=== PATIENT | male | born 1990 | race African-American/Black ===

== ENCOUNTER 2017-03-29 18:49 | Emergency (ER) | payer SELFPAY ==
[~2017-03-29] VITALS: Ht 185.4 cm; Wt 74.0 kg
[2017-03-29 18:50] VITALS: BP 119/67; PULSE 72; RESP 16; TEMP 97.8; O2SAT 98
--- NOTE | 2017-03-29 18:57 | PD ---
Physical Exam Time Seen by Provider: 18:56 Narrative 26yo M c/o penile discharge and dysuria for a few days. Herbert fever, vomiting. +unprotected sexual intercourse. Unknown exposure to STD. Patient seen in triage. VS reviewed. Awaiting bed placement. Data Data Last Documented VS Vital Signs Date Time Temp Pulse Resp B/P Pulse Ox O2 Delivery O2 Flow Rate FiO2 03/29/17 18:50 97.8 72 16 119/67 98 Room Air MDM Supervised Visit with FREDDIE: No Scripts No Active Prescriptions or Reported Meds Vinita Gregory Mar 29, 2017 18:57
--- NOTE | 2017-03-29 20:09 | PD ---
HPI Chief Complaint: Complaint Time Seen by Provider: 20:05 Travel History International Travel<30 days: No Contact w/Intl Traveler<30days: No Traveled to known affect area: No History of Present Illness HPI 26-year-old black male presents with a three-day history of urethral discharge and burning with urination. He has had increased urinary frequency and urgency. He denies any fever chills. No abdominal pain. No rashes or lesions. Symptoms are mild. History Past Medical Histgory Narrative Medical History of STD in the past Tetanus Vaccination: < 5 Years Hx Cancer: No Past Surgical History Surgical History: No Previous Surgery Social History Alcohol Use: No Tobacco Use: Yes (08/17 PPD) Allergies-Medications (Allergen,Severity, Reaction): Coded Allergies: No Known Allergies (Verified , 12/02/13) Reported Meds & Prescriptions Reported Meds & Active Scripts Active No Active Prescriptions or Reported Medications Review of Systems Except as stated in HPI: all other systems reviewed are Neg Physical Exam Narrative GENERAL: This is a well-nourished, well-developed patient, in no apparent distress. SKIN: No rashes, ecchymoses or lesions. Warm and dry. HEAD: Atraumatic. Normocephalic. EYES: PERRL, EOMI, no discharge or injection. No scleral icterus. EARS: Clear NOSE: Nasal turbinates appear normal. THROAT: Mucosa pink and moist. Airway patent. NECK: Trachea midline. supple, moves head freely. LUNGS: Clear to auscultation. CV: Regular in rhythm. ABDOMEN: Soft nontender. EXT: No clubbing cyanosis or edema. GENITOURINARY: Circumcised. Testes descended bilaterally without evidence of rotation. No lesions or erythema. Positive beige urethral discharge. Data Data Last Documented VS Vital Signs Date Time Temp Pulse Resp B/P Pulse Ox O2 Delivery O2 Flow Rate FiO2 03/29/17 18:50 97.8 72 16 119/67 98 Room Air MDM Medical Screen Exam Complete: Yes Emergency Medical Condition: No Differential Diagnosis MDM: Moderate Differential diagnoses: Chlamydia, gonorrhea, syphilis, chancroid, hepatitis, HIV, herpes Narrative Course A medical screening exam was performed: At the time of evaluation the presenting medical condition was determined not to be of an emergent nature. The patient was given the option of receiving additional care, but declined. Patient was given options for additional community resources from which to obtain care. The Patient Has Been advised to seek medical attention for their presenting complaint. The patient has been advised to return to the ER at any time if an emergent condition develops. Primary Impression: Encounter for medical screening examination Scripts No Active Prescriptions or Reported Meds Condition: Johny Law Mar 29, 2017 20:09
== END 2017-03-29 20:24 | disposition left against medical advice (07) ==
LOC: NEPK 18:49
DX: R36.9 Urethral discharge, unspecified (principal); R30.0 Dysuria; R35.0 Frequency of micturition; R39.15 Urgency of urination; F17.200 Nicotine dependence, unspecified, uncomplicated
CPT/HCPCS: 99281

== ENCOUNTER 2017-09-26 18:47 | Inpatient (IN) | payer SELFPAY ==
[~2017-09-26 18:47] MED LIST: CALC250 PO; ENOX30P SQ; FOLI1TAB6 PO; HALO5P IV PUSH; HYDR-3516 PO; Lactulose Liq PO; MAGN30S PO; MORP4INJ3 IV PUSH; PANT40TA3 PO; PERI PO; THERTAB15 PO; THIA100 PO; ZIPR20P IM
[2017-09-26] MEDS ORDERED: ACETAMINOPHEN 325 MG TAB PO PRN (20:45)
[2017-09-26] MEDS ORDERED: MAGNESIUM HYDROXIDE SUSP 30 ML CUP PO PRN (20:45)
[2017-09-26] MEDS ORDERED: ALUMINUM/MAGNESIUM/SIMETH 30 ML CUP PO PRN (20:45)
[2017-09-26] MEDS ORDERED: ACETAMINOPHEN/HYDROcodone 325 MG/5 MG TAB PO PRN (20:45)
[2017-09-26] MEDS: DOCUSATE SODIUM 50 MG/SENNA 8.6 MG TAB PO SCH (21:09)
[2017-09-26] MEDS: ENOXAPARIN SODIUM 30 MG/0.3 ML SYRINGE SQ SCH (21:09)
[2017-09-26] MEDS: MORPHINE SULFATE 4 MG/ML INJ IV PUSH PRN (21:10)
[2017-09-26] MEDS: ACETAMINOPHEN/HYDROcodone 325 MG/5 MG TAB PO PRN (21:12)
[2017-09-27] MEDS: ACETAMINOPHEN/HYDROcodone 325 MG/5 MG TAB PO PRN ×2 (03:29→10:12)
[2017-09-27] MEDS: MORPHINE SULFATE 4 MG/ML INJ IV PUSH PRN ×4 (03:30→20:11)
[2017-09-27 05:36] VITALS: BP 123/62; PULSE 80; RESP 16; TEMP 98.8; O2SAT 98
[2017-09-27] MEDS: PANTOPRAZOLE SOD 40 MG DELAYED RELEASE TAB PO SCH (09:00)
[2017-09-27] MEDS: MULTIVITAMIN TAB PO SCH (09:00)
[2017-09-27] MEDS: CALCIUM/VITAMIN D 250 MG/125 U TAB PO SCH ×3 (09:00→18:00)
[2017-09-27] MEDS: FOLIC ACID 1 MG TAB PO SCH (09:00)
[2017-09-27] MEDS: DOCUSATE SODIUM 50 MG/SENNA 8.6 MG TAB PO SCH ×2 (09:00→21:03)
[2017-09-27] MEDS: THIAMINE HCL 100 MG TAB PO SCH (09:00)
[2017-09-27] MEDS ORDERED: INFLUENZA VIRUS VACCINE (QUADRIVALENT) 0.5 ML SYR IM ONE (10:00)
[2017-09-27] MEDS ORDERED: PNEUMOCOCCAL POLYVALENT INJ 25 MCG/0.5 ML SYR IM ONE (10:00)
[2017-09-27] MEDS: ENOXAPARIN SODIUM 30 MG/0.3 ML SYRINGE SQ SCH ×2 (10:12→21:02)
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
--- NOTE | 2017-09-27 10:50 | EKG ---
Date Performed: 09/27/2017 Time Performed: 07:16:48 PTAGE: 26 years EKG: Sinus rhythm POSSIBLE RIGHT VENTRICULAR CONDUCTION DELAY MINIMAL VOLTAGE CRITERIA FOR LVH, CONSIDER NORMAL VARIAN T ST ELEVATION, PROBABLY EARLY REPOLARIZATION TYPE 2 BRUGADA PATTERN (NON-DIAGNOSTIC) BORDERLINE ECG NO PREVIOUS TRACING DOCTOR: Ravindra Urban Interpretating Date/Time 09/27/2017 10:49:11
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
[2017-09-27] MEDS ORDERED: oxyCODONE/ACETAMINOPHEN 5 MG/325 MG TAB PO PRN (12:00)
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
[2017-09-27 15:09] LABS: BICARBONATE 31.4 MEQ/L (21.0-32.0); BLOOD UREA NITROGEN 10 MG/DL (7-18); CALCIUM 7.8 MG/DL (8.5-10.1); CHLORIDE 103 MEQ/L (98-107); CHOLESTEROL 128 MG/DL (120-200); CREATININE 0.65 MG/DL (0.60-1.30); GLOMERULAR FILTRATION RATE 180 ML/MIN (>89); GLUCOSE,RANDOM 95 MG/DL (74-106); SODIUM (NA) 138 MEQ/L (136-145); TRIGLYCERIDES 130 MG/DL (42-150)
[2017-09-27 15:19] LABS: CHOLESTEROL/ HDL RATIO 4.47 RATIO; HDL CHOLESTEROL 28.6 MG/DL (40.0-60.0); LDL CHOLESTEROL 73 MG/DL (0-99)
[2017-09-27] MEDS: oxyCODONE/ACETAMINOPHEN 10 MG/325 MG TAB PO PRN ×2 (15:53→21:03)
[2017-09-27 16:41] LABS: HEMOGLOBIN A1C 4.9 % (4.3-6.0)
[2017-09-27] MEDS ORDERED: QUEtiapine FUMARATE 25 MG TAB PO SCH (21:00)
[2017-09-28] MEDS: oxyCODONE/ACETAMINOPHEN 10 MG/325 MG TAB PO PRN ×4 (04:12→20:24)
[2017-09-28] MEDS: MORPHINE SULFATE 4 MG/ML INJ IV PUSH PRN ×4 (05:58→21:16)
[2017-09-28 06:00] VITALS: BP 130/67; PULSE 89; RESP 16; TEMP 98.7; O2SAT 97
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
--- NOTE | 2017-09-28 10:02 | PD.ORT.PN ---
Subjective Subjective Remarks POD 5 s/p I&D with wound closure and IMN left femur doing well. reports pain but controlled. Objective Vitals Vital Signs Date Time Temp Pulse Resp B/P (MAP) Pulse Ox O2 Delivery O2 Flow Rate FiO2 09/28/17 06:00 98.7 89 16 130/67 (88) 97 I/O 09/27/17 09/27/17 09/27/17 09/28/17 09/28/17 09/28/17 07:00 15:00 23:00 07:00 15:00 23:00 Intake Total 240 ml 720 ml 360 ml Output Total 850 ml 1200 ml Balance -610 ml 720 ml -840 ml Intake Oral 240 ml 720 ml 360 ml Output Urine Total 850 ml 1200 ml # Voids 2 3 Result Diagram: 09/27/17 1408 Objective Remarks Left lower extremity: Clean dry dressings and intact. wound vac intact. good seal. distally NVI. vac removed and wounds visualized. healing well. minimal drainage. intact Assessment & Plan Assessment and Plan 1) Open left femur fracture S/P IMN and I&D with wound closure POD 5 vac discontinued today transition to normal soft dressings changes daily with xeroform/4x4/TED PT TTWB L LE continue dressing changes over left 1st toe with xeroform and dressing Poncho Monsalve/First Matthew LEMOS Sep 28, 2017 10:02
--- NOTE | 2017-09-28 10:17 | HHI.PR ---
Subjective Remarks Wound VAC has been removed. Patient is in pain when seen but says that after changing from narcotic Percocet he has better pain control. No other complaints from the patient. Objective Vital Signs Date Time Temp Pulse Resp B/P (MAP) Pulse Ox O2 Delivery O2 Flow Rate FiO2 09/28/17 06:00 98.7 89 16 130/67 (88) 97 I/O 09/27/17 09/27/17 09/27/17 09/28/17 09/28/17 09/28/17 07:00 15:00 23:00 07:00 15:00 23:00 Intake Total 240 ml 720 ml 360 ml Output Total 850 ml 1200 ml Balance -610 ml 720 ml -840 ml Intake Oral 240 ml 720 ml 360 ml Output Urine Total 850 ml 1200 ml # Voids 2 3 Result Diagram: 09/27/17 1408 Objective Remarks GENERAL: NAD, A&Ox3 HEAD: Normocephalic. NECK: Supple, trachea midline. No lymphadenopathy. EYES: No scleral icterus. No injection or drainage. CARDIOVASCULAR: Regular rate and rhythm without murmurs, gallops, or rubs. RESPIRATORY: Breath sounds equal bilaterally. No accessory muscle use. GASTROINTESTINAL: Abdomen soft, non-tender, nondistended. MUSCULOSKELETAL: No cyanosis, or edema. SKIN: Warm and dry. Sutures at medial thigh wound, rashi left knee and left lateral upper thigh. NEURO: No focal neurological deficitis. A/P Problem List: (1) Leg fracture, left ICD Code: S82.92XA - Unspecified fracture of left lower leg, initial encounter for closed fracture (2) Adjustment disorder with depressed mood ICD Code: F43.21 - Adjustment disorder with depressed mood Assessment and Plan 26-year-old male admitted secondary to left leg fracture and adjustment disorder with depressed mood Adjustment disorder with depressed mood Treatments per psychiatry Left leg fracture Postop left leg fracture repair Orthopedics following Wound VAC removed 09/28/17 Continue pain treatments Continue Percocet as needed for pain with morphine sulfate for breakthrough pain Follow H&H Continue working with physical therapy DVT prophylaxis Continue Stephen Warner MD Sep 28, 2017 10:17
[2017-09-28 10:35] LABS: HEMOGLOBIN 9.9 GM/DL (13.0-17.0)
[2017-09-28] MEDS: PANTOPRAZOLE SOD 40 MG DELAYED RELEASE TAB PO SCH (11:22)
[2017-09-28] MEDS: CALCIUM/VITAMIN D 250 MG/125 U TAB PO SCH ×3 (11:22→17:35)
[2017-09-28] MEDS: FOLIC ACID 1 MG TAB PO SCH (11:23)
[2017-09-28] MEDS: MULTIVITAMIN TAB PO SCH (11:23)
[2017-09-28] MEDS: DOCUSATE SODIUM 50 MG/SENNA 8.6 MG TAB PO SCH ×2 (11:23→20:24)
[2017-09-28] MEDS: THIAMINE HCL 100 MG TAB PO SCH (11:23)
[2017-09-28] MEDS: ENOXAPARIN SODIUM 30 MG/0.3 ML SYRINGE SQ SCH ×2 (11:32→20:24)
[2017-09-28 18:09] VITALS: BP 133/66; PULSE 77; RESP 16; TEMP 97.9; O2SAT 96
[2017-09-28] MEDS ORDERED: QUEtiapine FUMARATE 100 MG TAB PO SCH (21:00)
[2017-09-29] MEDS: MORPHINE SULFATE 4 MG/ML INJ IV PUSH PRN ×4 (04:12→18:55)
[2017-09-29 06:04] VITALS: BP 136/75; PULSE 92; RESP 17; TEMP 98; O2SAT 97
[2017-09-29] MEDS: PANTOPRAZOLE SOD 40 MG DELAYED RELEASE TAB PO SCH (08:30)
[2017-09-29] MEDS: DOCUSATE SODIUM 50 MG/SENNA 8.6 MG TAB PO SCH ×2 (08:30→21:00)
[2017-09-29] MEDS: ENOXAPARIN SODIUM 30 MG/0.3 ML SYRINGE SQ SCH ×2 (08:30→21:01)
[2017-09-29] MEDS: CALCIUM/VITAMIN D 250 MG/125 U TAB PO SCH ×3 (08:30→16:34)
[2017-09-29] MEDS: MULTIVITAMIN TAB PO SCH (08:30)
[2017-09-29] MEDS: THIAMINE HCL 100 MG TAB PO SCH (08:30)
[2017-09-29] MEDS: oxyCODONE/ACETAMINOPHEN 10 MG/325 MG TAB PO PRN ×4 (08:30→21:01)
[2017-09-29] MEDS: FOLIC ACID 1 MG TAB PO SCH (08:30)
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
--- NOTE | 2017-09-29 13:58 | HHI.PYPN ---
Subjective Remarks Patient seen for follow-up, chart reviewed. Discussion nursing staff reported the patient refused physical therapy yesterday had bowel movement. Patient was found lying hospital and that to be guarded and irritable today. Patient states that he is feeling "tired" and pain. Patient denies any perceptual source of delusions, continues to report feeling depressed but denies any suicide ideation at this time. Discussion about continued pain while her physical therapy was reviewed which he acknowledged but endorsed wanting to continue to improve. Patient denies any adverse drug reactions from quetiapine reports tolerating well. Review of Systems Except as stated in HPI: all other systems reviewed are Neg Mental Status Examination Appearance: Disheveled Consciousness: Somnolent (Somewhat but able to interact with interview today) Orientation: Person, Place, Date/Time Speech: Unremarkable Language: Adequate Fund of Knowledge: Inadequate Memory: Unremarkable Mood: Irritable Affect: Sad, Other (Guarded) Thought Process & Associations: Intact, Goal directed, Linear Thought Content: Appropriate Hallucination Type: None Delusion Type: None Suicidal Ideation: Yes (Denies today) Suicidal Plan: No Suicidal Intention: No Homicidal Ideation: No Homicidal Plan: No Homicidal Intention: No Insight: Fair Judgment: Impulsive Results Vitals/IOs Vital Signs Date Time Temp Pulse Resp B/P (MAP) Pulse Ox O2 Delivery O2 Flow Rate FiO2 09/29/17 06:04 98.0 92 17 136/75 (95) 97 Intake and Output 09/29/17 09/29/17 09/30/17 08:00 16:00 00:00 Intake Total 480 ml 480 ml Balance 480 ml 480 ml Assessment & Plan Problem List: (1) Adjustment disorder with depressed mood ICD Codes: F43.21 - Adjustment disorder with depressed mood Assessment & Plan Patient this time continues to be noted to be somewhat dysphoric, endorsing depressed mood, denying suicidality today and continues with irritability. We will continue to titrate quetiapine to therapeutic dose. Continue to monitor mood and behavior. Patient to continue physical therapy as well as recommend patient has required medical team. Discharge planning in progress. Justification for Cont. Inpt. At risk of further decompensation of lower level of care Discharge Planning Return back to mother's residence once psychiatrically medically stable. Xu Sharma MD Sep 29, 2017 13:58
[2017-09-29 18:32] VITALS: BP 121/62; PULSE 97; RESP 18; TEMP 98; O2SAT 94
[2017-09-29 18:46] LABS: HEMATOCRIT 32.6 % (39.0-51.0)
[2017-09-29] MEDS: hydrOXYzine HCL 50 MG TAB PO PRN (21:00)
[2017-09-29] MEDS ORDERED: QUEtiapine FUMARATE 100 MG TAB PO SCH (21:00)
[2017-09-29] MEDS: diphenhydrAMINE HCL 50 MG CAP PO PRN (21:01)
[2017-09-30] MEDS: oxyCODONE/ACETAMINOPHEN 10 MG/325 MG TAB PO PRN ×4 (03:58→17:34)
[2017-09-30] MEDS: MORPHINE SULFATE 4 MG/ML INJ IV PUSH PRN ×3 (04:15→20:40)
[2017-09-30 06:45] VITALS: BP 120/69; PULSE 100; RESP 18; TEMP 97.9; O2SAT 95
[2017-09-30] MEDS: FOLIC ACID 1 MG TAB PO SCH (09:43)
[2017-09-30] MEDS: CALCIUM/VITAMIN D 250 MG/125 U TAB PO SCH ×3 (09:43→17:34)
[2017-09-30] MEDS: THIAMINE HCL 100 MG TAB PO SCH (09:43)
[2017-09-30] MEDS: MULTIVITAMIN TAB PO SCH (09:43)
[2017-09-30] MEDS: DOCUSATE SODIUM 50 MG/SENNA 8.6 MG TAB PO SCH ×2 (09:43→20:39)
[2017-09-30] MEDS: PANTOPRAZOLE SOD 40 MG DELAYED RELEASE TAB PO SCH (09:43)
[2017-09-30] MEDS: ENOXAPARIN SODIUM 30 MG/0.3 ML SYRINGE SQ SCH ×2 (09:59→20:40)
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
--- NOTE | 2017-09-30 17:34 | HHI.PYPN ---
Subjective Remarks Patient seen for follow-up, chart reviewed. Discussion with the staff reported the patient could be blunted, depressed, denies any suicidal ideation cooperative. Patient was found lying in bed asleep a little weight continuing with interview. Patient's. Patient is alert and would not been continuing to be depressed denying any suicide ideations. Patient denies any adverse progression of. Reports continuing having pain and willing to work with physical therapy to regain his function. Denies any perceptual disturbance or delusions at this time. Review of Systems Except as stated in HPI: all other systems reviewed are Neg Mental Status Examination Appearance: Disheveled Consciousness: Alert Orientation: Person, Place, Date/Time Speech: Unremarkable Language: Adequate Fund of Knowledge: Inadequate Memory: Unremarkable Mood: Sad Affect: Sad, Other (Guarded) Thought Process & Associations: Intact, Goal directed, Linear Thought Content: Appropriate Hallucination Type: None Delusion Type: None Suicidal Ideation: Yes (Denies today) Suicidal Plan: No Suicidal Intention: No Homicidal Ideation: No Homicidal Plan: No Homicidal Intention: No Insight: Fair Judgment: Impulsive Results Labs Test 09/29/17 18:13 Hemoglobin 11.0 GM/DL Hematocrit 32.6 % Potassium Level 4.2 MEQ/L Vitals/IOs Vital Signs Date Time Temp Pulse Resp B/P (MAP) Pulse Ox O2 Delivery O2 Flow Rate FiO2 09/30/17 06:45 97.9 100 18 120/69 (86) 95 Intake and Output 09/30/17 09/30/17 10/01/17 08:00 16:00 00:00 Intake Total 960 ml Output Total 700 ml Balance -700 ml 960 ml Assessment & Plan Problem List: (1) Adjustment disorder with depressed mood ICD Codes: F43.21 - Adjustment disorder with depressed mood Assessment & Plan Patient this time continues to report feeling depressed denies any suicidal ideation. He was tolerating medications well. We will continue to titrate quetiapine to 300 mg p.o. at bedtime for mood stabilization. Continue to monitor mood and behavior. Continue recommendations as per medical team. Discharge planning in progress. Justification for Cont. Inpt. At risk for further decompensation if at lower level of care. Discharge Planning Back to his mother's residence Xu Sharma MD Sep 30, 2017 17:34
[2017-09-30 18:00] VITALS: BP 131/79; PULSE 89; RESP 18; TEMP 97.8; O2SAT 98
[2017-09-30] MEDS: diphenhydrAMINE HCL 50 MG CAP PO PRN (20:39)
[2017-09-30] MEDS: QUEtiapine FUMARATE 100 MG TAB PO SCH (20:39)
[2017-10-01] MEDS: MORPHINE SULFATE 4 MG/ML INJ IV PUSH PRN ×4 (01:01→19:34)
[2017-10-01 06:17] VITALS: BP 128/74; PULSE 93; RESP 17; TEMP 98.5
[2017-10-01 08:23] LABS: AUTOMATED NEUTROPHIL # 7.4 TH/MM3 (1.8-7.7); BASOPHIL # 0.1 TH/MM3 (0-0.2); BASOPHIL % 0.5 % (0.0-2.0); EOSINOPHIL # 0.5 TH/MM3 (0-0.4); EOSINOPHIL % 4.7 % (0.0-4.0); HEMATOCRIT 29.4 % (39.0-51.0); HEMOGLOBIN 10.2 GM/DL (13.0-17.0); LYMPH % 17.3 % (9.0-44.0); LYMPHOCYTE # 1.9 TH/MM3 (1.0-4.8); MEAN CELL VOLUME 91.8 FL (80.0-100.0); MEAN CORPUSCULAR HEMOGLOBIN 31.7 PG (27.0-34.0); MEAN CORPUSCULAR HGB CONC 34.5 % (32.0-36.0); MEAN PLATELET VOLUME 7.6 FL (7.0-11.0); MONO % 8.9 % (0.0-8.0); NEUT % 68.6 % (16.0-70.0); PLATELET COUNT 392 TH/MM3 (150-450); RED CELL DISTRIBUTION WIDTH 15.8 % (11.6-17.2); WHITE BLOOD COUNT 10.7 TH/MM3 (4.0-11.0)
[2017-10-01 08:46] LABS: ALBUMIN 2.9 GM/DL (3.4-5.0); AST (GOT) 67 U/L (15-37); BICARBONATE 28.9 MEQ/L (21.0-32.0); BLOOD UREA NITROGEN 20 MG/DL (7-18); CALCIUM 8.5 MG/DL (8.5-10.1); CHLORIDE 97 MEQ/L (98-107); CREATININE 0.83 MG/DL (0.60-1.30); GLOMERULAR FILTRATION RATE 136 ML/MIN (>89); GLUCOSE,RANDOM 99 MG/DL (74-106); MAGNESIUM 2.2 MG/DL (1.5-2.5); SODIUM (NA) 133 MEQ/L (136-145)
[2017-10-01 08:49] LABS: ALKALINE PHOSPHATASE 72 U/L (45-117); ALT (GPT) 73 U/L (12-78); PHOSPHORUS 4.2 MG/DL (2.5-4.9); TOTAL BILIRUBIN ADULT 0.6 MG/DL (0.2-1.0); TOTAL PROTEIN 7.4 GM/DL (6.4-8.2)
[2017-10-01] MEDS: PANTOPRAZOLE SOD 40 MG DELAYED RELEASE TAB PO SCH (09:37)
[2017-10-01] MEDS: THIAMINE HCL 100 MG TAB PO SCH (09:37)
[2017-10-01] MEDS: DOCUSATE SODIUM 50 MG/SENNA 8.6 MG TAB PO SCH ×2 (09:37→21:10)
[2017-10-01] MEDS: MULTIVITAMIN TAB PO SCH (09:37)
[2017-10-01] MEDS: FOLIC ACID 1 MG TAB PO SCH (09:37)
[2017-10-01] MEDS: CALCIUM/VITAMIN D 250 MG/125 U TAB PO SCH ×3 (09:37→18:00)
[2017-10-01] MEDS: oxyCODONE/ACETAMINOPHEN 10 MG/325 MG TAB PO PRN ×3 (09:39→21:11)
[2017-10-01] MEDS: ENOXAPARIN SODIUM 30 MG/0.3 ML SYRINGE SQ SCH ×2 (09:40→21:11)
--- NOTE | 2017-10-01 10:47 | HHI.PYPN ---
Subjective Remarks The patient was seen today for psychiatric reevaluation. Chart Was reviewed. The case was discussed with nurse in charge and also with medical student Dr. Joya. On psychiatric evaluation the patient is calm, cooperative, pleasant. He is eating his breakfast, reports good mood, good appetite, good sleep at night. She was able to elaborate about plans for the future, to continue with his life, get away from drugs. At this moment he denies suicidal and homicidal ideation, he denies visual and auditory hallucinations. The patient is logical , coherent and relevant. There is no paranoia, no loosening of associations, no pressured speech, no internal preoccupation present. He is oriented 3. Compliant with his medications, no significant side effects. Review of Systems Except as stated in HPI: all other systems reviewed are Neg Mental Status Examination Appearance: Disheveled Consciousness: Alert Orientation: x4 Speech: Unremarkable Language: Adequate Fund of Knowledge: Inadequate Memory: Unremarkable Mood: Appropriate Affect: Appropriate, Other (Guarded) Thought Process & Associations: Intact, Goal directed, Linear Thought Content: Appropriate Hallucination Type: None Delusion Type: None Suicidal Ideation: No Suicidal Plan: No Suicidal Intention: No Homicidal Ideation: No Homicidal Plan: No Homicidal Intention: No Insight: Fair Judgment: Impulsive Results Labs Test 10/01/17 07:16 White Blood Count 10.7 TH/MM3 Red Blood Count 3.20 MIL/MM3 Hemoglobin 10.2 GM/DL Hematocrit 29.4 % Mean Corpuscular Volume 91.8 FL Mean Corpuscular Hemoglobin 31.7 PG Mean Corpuscular Hemoglobin Concent 34.5 % Red Cell Distribution Width 15.8 % Platelet Count 392 TH/MM3 Mean Platelet Volume 7.6 FL Neutrophils (%) (Auto) 68.6 % Lymphocytes (%) (Auto) 17.3 % Monocytes (%) (Auto) 8.9 % Eosinophils (%) (Auto) 4.7 % Basophils (%) (Auto) 0.5 % Neutrophils # (Auto) 7.4 TH/MM3 Lymphocytes # (Auto) 1.9 TH/MM3 Monocytes # (Auto) 1.0 TH/MM3 Eosinophils # (Auto) 0.5 TH/MM3 Basophils # (Auto) 0.1 TH/MM3 CBC Comment DIFF FINAL Differential Comment Blood Urea Nitrogen 20 MG/DL Creatinine 0.83 MG/DL Random Glucose 99 MG/DL Total Protein 7.4 GM/DL Albumin 2.9 GM/DL Calcium Level 8.5 MG/DL Phosphorus Level 4.2 MG/DL Magnesium Level 2.2 MG/DL Alkaline Phosphatase 72 U/L Aspartate Amino Transf (AST/SGOT) 67 U/L Alanine Aminotransferase (ALT/SGPT) 73 U/L Total Bilirubin 0.6 MG/DL Sodium Level 133 MEQ/L Potassium Level 4.3 MEQ/L Chloride Level 97 MEQ/L Carbon Dioxide Level 28.9 MEQ/L Anion Gap 7 MEQ/L Estimat Glomerular Filtration Rate 136 ML/MIN Vitals/IOs Vital Signs Date Time Temp Pulse Resp B/P (MAP) Pulse Ox O2 Delivery O2 Flow Rate FiO2 10/01/17 06:17 98.5 93 17 128/74 (92) 09/30/17 18:00 98 Intake and Output 10/01/17 10/01/17 10/02/17 08:00 16:00 00:00 Intake Total 0 ml 480 ml Balance 0 ml 480 ml Assessment & Plan Problem List: (1) Adjustment disorder with depressed mood ICD Codes: F43.21 - Adjustment disorder with depressed mood Assessment & Plan: Continue current psychotropic regimen. Brief supportive psychotherapy provided. Assessment & Plan Estimated LOS: days Justification for Cont. Inpt. Continue psychiatric hospitalization for safety and stabilization. Alejandro Dotson MD Oct 01, 2017 10:47
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
[2017-10-01 18:26] VITALS: BP 117/70; PULSE 106; RESP 18; TEMP 98.1; O2SAT 98
[2017-10-01] MEDS: QUEtiapine FUMARATE 100 MG TAB PO SCH (21:10)
[2017-10-01] MEDS: diphenhydrAMINE HCL 50 MG CAP PO PRN (21:10)
[2017-10-02] MEDS: MORPHINE SULFATE 4 MG/ML INJ IV PUSH PRN ×4 (05:25→20:15)
[2017-10-02 06:27] VITALS: BP 118/61; PULSE 89; RESP 17; TEMP 98.3; O2SAT 98
[2017-10-02] MEDS: CALCIUM/VITAMIN D 250 MG/125 U TAB PO SCH ×3 (09:02→18:00)
[2017-10-02] MEDS: oxyCODONE/ACETAMINOPHEN 10 MG/325 MG TAB PO PRN ×3 (09:02→21:37)
[2017-10-02] MEDS: MULTIVITAMIN TAB PO SCH (09:02)
[2017-10-02] MEDS: PANTOPRAZOLE SOD 40 MG DELAYED RELEASE TAB PO SCH (09:02)
[2017-10-02] MEDS: DOCUSATE SODIUM 50 MG/SENNA 8.6 MG TAB PO SCH ×2 (09:02→20:15)
[2017-10-02] MEDS: FOLIC ACID 1 MG TAB PO SCH (09:02)
[2017-10-02] MEDS: THIAMINE HCL 100 MG TAB PO SCH (09:03)
[2017-10-02] MEDS: ENOXAPARIN SODIUM 30 MG/0.3 ML SYRINGE SQ SCH ×2 (09:03→20:16)
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
[2017-10-02] MEDS: hydrOXYzine HCL 50 MG TAB PO PRN ×2 (15:53→21:37)
[2017-10-02 18:23] VITALS: BP 125/69; PULSE 84; RESP 17; TEMP 98; O2SAT 98
[2017-10-02] MEDS: QUEtiapine FUMARATE 100 MG TAB PO SCH (20:15)
[2017-10-03] MEDS: hydrOXYzine HCL 50 MG TAB PO PRN ×2 (06:22→17:51)
[2017-10-03] MEDS: oxyCODONE/ACETAMINOPHEN 10 MG/325 MG TAB PO PRN ×4 (06:22→22:07)
[2017-10-03 06:26] VITALS: BP 130/64; PULSE 88; RESP 18; TEMP 98; O2SAT 98
--- NOTE | 2017-10-03 08:48 | HHI.PYPN ---
Subjective Remarks Patient seen in his room with nurse Deann, chart reviewed, patient discussed with nurse. Patient overall calm cooperative and pleasant with me complaining of pain still with his fractured leg but is doing somewhat better. He denies suicidality of voices at the present time is compliant with medication Review of Systems Except as stated in HPI: all other systems reviewed are Neg Mental Status Examination Appearance: Disheveled Consciousness: Alert Orientation: x4 Speech: Unremarkable Language: Adequate Fund of Knowledge: Inadequate Memory: Unremarkable Mood: Appropriate Affect: Appropriate, Other (Guarded) Thought Process & Associations: Intact, Goal directed, Linear Thought Content: Appropriate Hallucination Type: None Delusion Type: None Suicidal Ideation: No Suicidal Plan: No Suicidal Intention: No Homicidal Ideation: No Homicidal Plan: No Homicidal Intention: No Insight: Fair Judgment: Impulsive Results Vitals/IOs Vital Signs Date Time Temp Pulse Resp B/P (MAP) Pulse Ox O2 Delivery O2 Flow Rate FiO2 10/03/17 06:26 98.0 88 18 130/64 (86) 98 Intake and Output 10/03/17 10/03/17 10/04/17 08:00 16:00 00:00 Intake Total 120 ml Output Total 750 ml Balance -630 ml Assessment & Plan Problem List: (1) Adjustment disorder with depressed mood ICD Codes: F43.21 - Adjustment disorder with depressed mood Assessment & Plan Estimated LOS: days patient calmer cooperative more pleasant today appears somewhat depressed. Is been no behavior problems, compliant with medication Justification for Cont. Inpt. At this time patient decompensate of placed in a lower level of care Discharge Planning To be determined probable return home with family Jorje De Leon MD Oct 03, 2017 08:48
[2017-10-03] MEDS: FOLIC ACID 1 MG TAB PO SCH (09:12)
[2017-10-03] MEDS: MULTIVITAMIN TAB PO SCH (09:12)
[2017-10-03] MEDS: THIAMINE HCL 100 MG TAB PO SCH (09:12)
[2017-10-03] MEDS: PANTOPRAZOLE SOD 40 MG DELAYED RELEASE TAB PO SCH (09:12)
[2017-10-03] MEDS: CALCIUM/VITAMIN D 250 MG/125 U TAB PO SCH ×3 (09:12→17:51)
[2017-10-03] MEDS: DOCUSATE SODIUM 50 MG/SENNA 8.6 MG TAB PO SCH ×2 (09:12→21:56)
[2017-10-03] MEDS: MORPHINE SULFATE 4 MG/ML INJ IV PUSH PRN ×3 (09:12→20:00)
[2017-10-03] MEDS: ENOXAPARIN SODIUM 30 MG/0.3 ML SYRINGE SQ SCH ×2 (09:12→21:56)
--- NOTE | 2017-10-03 10:09 | HHI.PR ---
Subjective Remarks Patient seen and examined this morning. Afebrile vital signs stable. Reports he is doing well. He is about to start some physical therapy. He is enjoying his physical therapy. He is worried that he might have put too much weight on his leg. Encouraged him to still get out of bed and move around as much as possible. Objective Vitals Vital Signs Date Time Temp Pulse Resp B/P (MAP) Pulse Ox O2 Delivery O2 Flow Rate FiO2 10/03/17 06:26 98.0 88 18 130/64 (86) 98 10/02/17 20:20 18 10/02/17 18:23 98.0 84 17 125/69 (87) 98 I/O 10/02/17 10/02/17 10/02/17 10/03/17 10/03/17 10/03/17 07:00 15:00 23:00 07:00 15:00 23:00 Intake Total 360 ml 2040 ml 120 ml 360 ml Output Total 1600 ml 750 ml Balance 360 ml 440 ml -630 ml 360 ml Intake Oral 360 ml 2040 ml 120 ml 360 ml Output Urine Total 1600 ml 750 ml Result Diagram: 10/01/1716 10/01/1716 Objective Remarks GENERAL: Awake and alert somewhat talkative well-developed well-nourished -Swiss male in no acute distress awake alert and oriented 2-3 SKIN: Warm and dry. HEAD: Atraumatic. Normocephalic. EYES: Pupils equal and round. No scleral icterus. No injection or drainage. Extractor muscles intact ENT: No nasal bleeding or discharge. Mucous membranes pink and moist. Tongue is midline NECK: Trachea midline. No JVD. Supple CARDIOVASCULAR: Regular rate and rhythm. S1 and S2 no S3 or S4 RESPIRATORY: No accessory muscle use. Clear to auscultation. Breath sounds equal bilaterally. GASTROINTESTINAL: Abdomen soft, non-tender, nondistended. Hepatic and splenic margins not palpable. MUSCULOSKELETAL: Extremities without clubbing, cyanosis, or edema. No obvious deformities. LEFT LEG TRACE EDEMA NOTED-postop left leg fracture repair with left thigh wrapped in an Mateus wrap. Left knee rashi dry and intact no visible drainage left upper thigh rashi no visible drainage dry and intact NEUROLOGICAL: Awake and alert. No obvious cranial nerve deficits. Motor grossly within normal limits. 4 out of 5 muscle strength in the arms and legs. Normal speech. PSYCHIATRIC: INAppropriate mood and affect; insight and judgment ABnormal. Medications and IVs Current Medications Medications (Trade) Dose Ordered Sig/Keya Route Start Time Stop Time Status Last Admin (Benadryl) 50 mg HS PRN PO 09/26/17 20:45 10/01/17 21:10 (Tylenol) 650 mg Q4H PRN PO 09/26/17 20:45 10/01/17 09:38 (Milk Of Magnesia Liq) 30 ml DAILY PRN PO 09/26/17 20:45 09/27/17 21:03 (Mag-Al Plus Susp Liq) 30 ml Q6H PRN PO 09/26/17 20:45 (Atarax) 50 mg Q6H PRN PO 09/26/17 20:45 10/03/17 06:22 (Oscal-D 250-125) 250 mg TID PO 09/27/17 09:00 10/03/17 09:12 (Lovenox Inj) 30 mg Q12H SQ 09/26/17 21:00 10/03/17 09:12 (Folate) 1 mg DAILY PO 09/27/17 09:00 10/03/17 09:12 (Morphine Inj) 4 mg Q3H PRN IV PUSH 09/26/17 20:45 10/03/17 09:12 (Theragran) 1 tab DAILY PO 09/27/17 09:00 10/03/17 09:12 (Protonix) 40 mg DAILY PO 09/27/17 09:00 10/03/17 09:12 (Elidia-Colace) 1 tab BID PO 09/26/17 21:00 10/03/17 09:12 (Vitamin B1) 100 mg DAILY PO 09/27/17 09:00 10/03/17 09:12 (Percocet 10-325 Mg) 1 tab Q4H PRN PO 09/27/17 12:00 10/03/17 09:53 (Percocet 5-325 Mg) 1 tab Q4H PRN PO 09/27/17 12:00 (SEROquel) 300 mg HS PO 09/30/17 21:00 10/02/17 20:15 A/P Problem List: (1) Leg fracture, left ICD Code: S82.92XA - Unspecified fracture of left lower leg, initial encounter for closed fracture (2) Adjustment disorder with depressed mood ICD Code: F43.21 - Adjustment disorder with depressed mood Assessment and Plan 26-year-old male admitted secondary to left leg fracture and adjustment disorder with depressed mood Adjustment disorder with depressed mood - Treatments per psychiatry Left leg fracture - Postop left leg fracture repair -Orthopedic service is following, appreciate ongoing recommendations. Wound VAC off with orders for dressing changes by orthopedics - Continue pain medication, briefly discussed with patient the importance of participating in physical therapy for recovery. -H&H stable Hypokalemia, mild -stable at this time DVT prophylaxis - Continue Lovenox Discussed with nurse. Recheck labs Consulted PT and OT, recommendations appreciate Discharge Planning Pending psychiatry clearance Bryson Aquino MD, R3 Oct 03, 2017 10:09
[2017-10-03 19:01] VITALS: BP 124/58; PULSE 102; RESP 18; TEMP 98.2; O2SAT 99
[2017-10-03] MEDS: QUEtiapine FUMARATE 100 MG TAB PO SCH (21:56)
[2017-10-04 05:07] VITALS: BP 107/62; PULSE 89; RESP 16; TEMP 98.1; O2SAT 99
[2017-10-04 07:47] LABS: HEMATOCRIT 28.5 % (39.0-51.0); HEMOGLOBIN 9.7 GM/DL (13.0-17.0); MEAN CELL VOLUME 92.8 FL (80.0-100.0); MEAN CORPUSCULAR HEMOGLOBIN 31.7 PG (27.0-34.0); MEAN CORPUSCULAR HGB CONC 34.1 % (32.0-36.0); MEAN PLATELET VOLUME 6.8 FL (7.0-11.0); PLATELET COUNT 481 TH/MM3 (150-450); RED BLOOD COUNT 3.07 MIL/MM3 (4.50-5.90); WHITE BLOOD COUNT 8.3 TH/MM3 (4.0-11.0)
[2017-10-04] MEDS: CALCIUM/VITAMIN D 250 MG/125 U TAB PO SCH ×3 (07:57→17:30)
[2017-10-04] MEDS: DOCUSATE SODIUM 50 MG/SENNA 8.6 MG TAB PO SCH ×2 (07:58→21:52)
[2017-10-04] MEDS: THIAMINE HCL 100 MG TAB PO SCH (07:58)
[2017-10-04] MEDS: PANTOPRAZOLE SOD 40 MG DELAYED RELEASE TAB PO SCH (07:58)
[2017-10-04] MEDS: ENOXAPARIN SODIUM 30 MG/0.3 ML SYRINGE SQ SCH ×2 (07:59→21:00)
[2017-10-04] MEDS: MULTIVITAMIN TAB PO SCH (07:59)
[2017-10-04] MEDS: FOLIC ACID 1 MG TAB PO SCH (07:59)
[2017-10-04] MEDS: oxyCODONE/ACETAMINOPHEN 10 MG/325 MG TAB PO PRN ×4 (08:00→21:54)
[2017-10-04 08:13] LABS: BICARBONATE 30.2 MEQ/L (21.0-32.0); CALCIUM 8.4 MG/DL (8.5-10.1); CREATININE 0.8 MG/DL (0.60-1.30)
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
[2017-10-04] MEDS: MORPHINE SULFATE 4 MG/ML INJ IV PUSH PRN ×3 (11:45→20:44)
--- NOTE | 2017-10-04 12:14 | HHI.PYPN ---
Subjective Remarks Patient seen for follow-up, chart reviewed. Discussion nursing staff or the patient continues to work with physical therapy but no behavioral disturbances. Patient was found lying in hospital bed initially irritable and guarded but able to interact with the interview today. Patient states that he has been feeling "okay" tolerating medications well and continue to be motivated to continue recovery from his recent fractures. Patient reports feeling "okay" denying any depressive symptoms at this time denying any suicidal or homicidal ideations, perceptual disturbances or delusions. Patient states he is motivated to continue with his treatment and recovery. Review of Systems Except as stated in HPI: all other systems reviewed are Neg Mental Status Examination Appearance: Appropriate Consciousness: Alert Orientation: x4 Speech: Unremarkable Language: Adequate Fund of Knowledge: Inadequate Attention and Concentration: Adequate Memory: Unremarkable Mood: Appropriate Affect: Appropriate, Other (Guarded) Thought Process & Associations: Intact, Goal directed, Linear Thought Content: Appropriate Hallucination Type: None Delusion Type: None Suicidal Ideation: No Suicidal Plan: No Suicidal Intention: No Homicidal Ideation: No Homicidal Plan: No Homicidal Intention: No Insight: Fair Judgment: Impulsive Results Labs Labs reviewed Test 10/04/17 07:35 White Blood Count 8.3 TH/MM3 Red Blood Count 3.07 MIL/MM3 Hemoglobin 9.7 GM/DL Hematocrit 28.5 % Mean Corpuscular Volume 92.8 FL Mean Corpuscular Hemoglobin 31.7 PG Mean Corpuscular Hemoglobin Concent 34.1 % Red Cell Distribution Width 16.0 % Platelet Count 481 TH/MM3 Mean Platelet Volume 6.8 FL Blood Urea Nitrogen 19 MG/DL Creatinine 0.80 MG/DL Random Glucose 91 MG/DL Calcium Level 8.4 MG/DL Sodium Level 135 MEQ/L Potassium Level 4.3 MEQ/L Chloride Level 100 MEQ/L Carbon Dioxide Level 30.2 MEQ/L Anion Gap 5 MEQ/L Estimat Glomerular Filtration Rate 142 ML/MIN Vitals/IOs Vital Signs Date Time Temp Pulse Resp B/P (MAP) Pulse Ox O2 Delivery O2 Flow Rate FiO2 10/04/17 05:07 98.1 89 16 107/62 (77) 99 Intake and Output 10/04/17 10/04/17 10/05/17 08:00 16:00 00:00 Intake Total 240 ml 420 ml Balance 240 ml 420 ml Assessment & Plan Problem List: (1) Adjustment disorder with depressed mood ICD Codes: F43.21 - Adjustment disorder with depressed mood Assessment & Plan Patient this time appears to be tolerating medications well, continues to be somewhat guarded but denying any depressive symptoms or suicidal./ homicidal ideations. We will await for final recommendations from physical therapy as patient likely for psychiatric discharge tomorrow. We will arrange to have patient have outpatient follow-up upon discharge as well as possibility of implementing home health services for continued recovery. Patient will also be referred to outpatient rehabilitation program as well. Continue recognitions as her prior medical team. Discharge planning in progress. Justification for Cont. Inpt. At risk for further decompensation if at lower level of care Discharge Planning Back to his mother's residence. Xu Sharma MD Oct 04, 2017 12:14
[2017-10-04 18:37] VITALS: BP 127/62; PULSE 104; RESP 16; TEMP 97.7; O2SAT 99
[2017-10-04] MEDS: diphenhydrAMINE HCL 50 MG CAP PO PRN (21:53)
[2017-10-04] MEDS: QUEtiapine FUMARATE 100 MG TAB PO SCH (21:53)
[2017-10-05 05:43] VITALS: BP 113/65; PULSE 88; RESP 21; TEMP 98.1
[2017-10-05] MEDS: MORPHINE SULFATE 4 MG/ML INJ IV PUSH PRN ×2 (06:36→10:11)
[2017-10-05] MEDS ORDERED: PERI PO (06:47)
[2017-10-05] MEDS ORDERED: PANT40TA3 PO (06:47)
[2017-10-05] MEDS ORDERED: CALC250 PO (06:47)
[2017-10-05] MEDS ORDERED: FOLI1TAB6 PO (06:47)
[2017-10-05] MEDS ORDERED: THIA100 PO (06:47)
[2017-10-05] MEDS ORDERED: QUET1TAB10 PO (06:47)
[2017-10-05] MEDS ORDERED: THERTAB15 PO (06:47)
[2017-10-05] MEDS: CALCIUM/VITAMIN D 250 MG/125 U TAB PO SCH ×2 (08:34→13:00)
[2017-10-05] MEDS: FOLIC ACID 1 MG TAB PO SCH (08:34)
[2017-10-05] MEDS: DOCUSATE SODIUM 50 MG/SENNA 8.6 MG TAB PO SCH (08:34)
[2017-10-05] MEDS: MULTIVITAMIN TAB PO SCH (08:34)
[2017-10-05] MEDS: PANTOPRAZOLE SOD 40 MG DELAYED RELEASE TAB PO SCH (08:34)
[2017-10-05] MEDS: oxyCODONE/ACETAMINOPHEN 10 MG/325 MG TAB PO PRN ×2 (08:34→12:49)
[2017-10-05] MEDS: THIAMINE HCL 100 MG TAB PO SCH (08:34)
[2017-10-05] MEDS: ENOXAPARIN SODIUM 30 MG/0.3 ML SYRINGE SQ SCH (08:36)
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
--- NOTE | 2017-10-05 11:27 | HHI.PR ---
Subjective Remarks no complaints Objective Vitals Vital Signs Date Time Temp Pulse Resp B/P (MAP) Pulse Ox O2 Delivery O2 Flow Rate FiO2 10/05/17 11:11 18 10/05/17 05:43 98.1 88 21 113/65 (81) 10/04/17 18:37 97.7 104 16 127/62 (83) 99 I/O 10/04/17 10/04/17 10/04/17 10/05/17 10/05/17 10/05/17 07:00 15:00 23:00 07:00 15:00 23:00 Intake Total 1080 ml 1320 ml 360 ml 840 ml 240 ml Output Total 400 ml Balance 1080 ml 1320 ml 360 ml 440 ml 240 ml Intake Oral 1080 ml 1320 ml 360 ml 840 ml 240 ml Output Urine Total 400 ml # Voids 5 2 # Bowel Movements 1 2 Result Diagram: 10/04/17 0735 10/04/17 0735 A/P Problem List: (1) Leg fracture, left ICD Code: S82.92XA - Unspecified fracture of left lower leg, initial encounter for closed fracture (2) Adjustment disorder with depressed mood ICD Code: F43.21 - Adjustment disorder with depressed mood Assessment and Plan call ortho regarding dc plans weight bearing status follow up appointment lovenox duration pain meds- will be written for one week then pcp follow up with [facility] outpatient follow up appointment Dario Light MD Oct 05, 2017 11:27
[2017-10-05] MEDS ORDERED: WALKER/ADULT/FO1 MIS (11:45)
[2017-10-05] MEDS ORDERED: WHEEMIS3 (11:45)
[2017-10-05] MEDS ORDERED: XARE10TA PO (11:46)
[2017-10-05] MEDS ORDERED: OXYC1TAB36 PO (11:52)
[2017-10-05 17:43] VITALS: BP 111/57; PULSE 95; RESP 18; TEMP 97.8; O2SAT 97
== END 2017-10-05 18:10 | disposition home or self-care (01) | DRG 881 ==
LOC: MERGE 20:05 → H4EA 20:05
PROVIDERS: ADMIT Student in an Organized Health Care Education/Training Program; ATTEND Student in an Organized Health Care Education/Training Program
DX: F43.21 Adjustment disorder with depressed mood (principal); S72.92XB Unspecified fracture of left femur, initial encounter for open fracture type I or II; R45.851 Suicidal ideations; F11.20 Opioid dependence, uncomplicated; F13.20 Sedative, hypnotic or anxiolytic dependence, uncomplicated; F14.20 Cocaine dependence, uncomplicated; F15.20 Other stimulant dependence, uncomplicated; E87.6 Hypokalemia; D64.9 Anemia, unspecified; F90.9 Attention-deficit hyperactivity disorder, unspecified type; F12.90 Cannabis use, unspecified, uncomplicated; V04.09XA Pedestrian with other conveyance injured in collision with heavy transport vehicle or bus in nontraffic accident, initial encounter; Z59.0 Homelessness; Z62.810 Personal history of physical and sexual abuse in childhood; Z72.0 Tobacco use; Z91.14 Patient's other noncompliance with medication regimen
CPT/HCPCS: 76937; 80048; 80053; 80061; 83036; 83735; 84100; 84132; 84443; 85014; 85018; 85025; 85027; 93005; J1650; J2270; Q0163

== ENCOUNTER 2017-10-15 18:47 | Emergency (ER) | payer SELFPAY ==
[~2017-10-15] VITALS: Ht 188 cm; Wt 76.0 kg
[~2017-10-15 18:47] MED LIST changes: -HALO5P IV PUSH; -Lactulose Liq PO; -MAGN30S PO; +OXYC1TAB36 PO; +QUET1TAB10 PO; +WALKER/ADULT/FO1 MIS; +WHEEMIS3; +XARE10TA PO; -ZIPR20P IM
[2017-10-15 19:05] VITALS: BP 119/64; PULSE 90; RESP 18; TEMP 98.4; O2SAT 100
== END 2017-10-15 21:05 | disposition left against medical advice (07) ==
LOC: NED 18:47
DX: Z53.21 Procedure and treatment not carried out due to patient leaving prior to being seen by health care provider (principal)
CPT/HCPCS: 99281

== ENCOUNTER 2017-11-22 17:06 | Observation (INO) | payer SELFPAY ==
[~2017-11-22] VITALS: Ht 188 cm; Wt 77.7 kg
[2017-11-22 17:21] VITALS: BP 148/75; PULSE 89; RESP 18; TEMP 97.7; O2SAT 100
--- NOTE | 2017-11-22 18:07 | RADRPT ---
EXAM DATE/TIME: 11/22/2017 17:52 [facility] COMPARISON: No previous studies available for comparison. INDICATIONS : Left femur pain and swelling post op 2 months. MEDICAL HISTORY : None. SURGICAL HISTORY : ORIF left femur 09/23/17. ENCOUNTER: Initial ACUITY: 2 days PAIN SCORE: 10/10 LOCATION: Left femur. FINDINGS: Two view examination of the left femur demonstrates postoperative kaley fixation across a comminuted fe moral shaft fracture with healing callous formation. Normal alignment of the femur. CONCLUSION: 1. Postoperative fixation of the left femur as above. No acute fracture. Johny Ellison MD on November 22, 2017 at 18:03 Board Certified Radiologist. This report was verified electronically.
[2017-11-22 20:54] VITALS: BP 133/72; PULSE 91; RESP 16; O2SAT 98
[2017-11-22] MEDS ORDERED: VANCOMYCIN INJ 1,000 MG in SODIUM CHLOR 0.9% 250 ML INJ 250 ML IV ONE (21:15)
[2017-11-22] MEDS ORDERED: KETOROLAC TROMETHAMINE 30 MG/ML (IVP) VIAL IV PUSH ONE (21:15)
[2017-11-22 21:56] LABS: AUTOMATED NEUTROPHIL # 4.4 TH/MM3 (1.8-7.7); BASOPHIL % 0.4 % (0.0-2.0); EOSINOPHIL # 0.2 TH/MM3 (0-0.4); EOSINOPHIL % 2.5 % (0.0-4.0); HEMOGLOBIN 12.1 GM/DL (13.0-17.0); LYMPH % 23.4 % (9.0-44.0); LYMPHOCYTE # 1.6 TH/MM3 (1.0-4.8); MEAN CELL VOLUME 85.5 FL (80.0-100.0); MEAN CORPUSCULAR HEMOGLOBIN 28.7 PG (27.0-34.0); MEAN CORPUSCULAR HGB CONC 33.5 % (32.0-36.0); MEAN PLATELET VOLUME 8.2 FL (7.0-11.0); MONO % 8.1 % (0.0-8.0); MONOCYTE # 0.5 TH/MM3 (0-0.9); NEUT % 65.6 % (16.0-70.0); PLATELET COUNT 374 TH/MM3 (150-450); RED BLOOD COUNT 4.21 MIL/MM3 (4.50-5.90); RED CELL DISTRIBUTION WIDTH 16.2 % (11.6-17.2); WHITE BLOOD COUNT 6.7 TH/MM3 (4.0-11.0)
[2017-11-22 22:00] VITALS: BP 121/69; PULSE 90; RESP 18; O2SAT 97
[2017-11-22 22:00] LABS: LACTIC ACID SEPSIS PROTOCOL 2.4 mmol/L (0.4-2.0)
[2017-11-22 22:03] LABS: PROTHROMBIN TIME - PATIENT 10.2 SEC (9.8-11.6)
[2017-11-22 22:09] LABS: ALBUMIN 3.1 GM/DL (3.4-5.0); ALT (GPT) 27 U/L (12-78); AST (GOT) 42 U/L (15-37); BICARBONATE 25.4 MEQ/L (21.0-32.0); BLOOD UREA NITROGEN 11 MG/DL (7-18); CALCIUM 8.3 MG/DL (8.5-10.1); CHLORIDE 102 MEQ/L (98-107); CREATININE 1.05 MG/DL (0.60-1.30); GLOMERULAR FILTRATION RATE 103 ML/MIN (>89); GLUCOSE,RANDOM 87 MG/DL (74-106); SODIUM (NA) 135 MEQ/L (136-145)
[2017-11-22 22:12] LABS: ALKALINE PHOSPHATASE 232 U/L (45-117); TOTAL BILIRUBIN ADULT 0.4 MG/DL (0.2-1.0); TOTAL PROTEIN 8.2 GM/DL (6.4-8.2)
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
--- NOTE | 2017-11-22 22:31 | RADRPT ---
EXAM DATE/TIME: 11/22/2017 22:13 [facility] COMPARISON: No previous studies available for comparison. INDICATIONS : Left leg swelling. MEDICAL HISTORY : PTSD. Vision problem. Substance use. Tobacco use. SURGICAL HISTORY : Left femur surgery. ENCOUNTER: Initial ACUITY: 4 - 6 days PAIN SCORE: 6/10 LOCATION: Left leg. TECHNIQUE: Venous ultrasound of the leg was performed from the inguinal ligament to the proximal calf. Real-jennifer e, color Doppler and spectral tracing, compression and augmentation techniques were used. FINDINGS: There is normal compressibility of the deep venous system from the inguinal region to the proximal ca lf. No echogenic clot is seen in the lumen of the common femoral, femoral, popliteal, and posterior tibial veins. There is a normal response of the venous system to proximal and distal augmentation an d respiration. CONCLUSION: Normal examination. Johny Ellison MD on November 22, 2017 at 22:28 Board Certified Radiologist. This report was verified electronically.
[2017-11-22] MEDS ORDERED: MORPHINE SULFATE 2 MG/ML SYRINGE IV PUSH ONE (23:00)
[2017-11-22] MEDS ORDERED: IOHEXOL 350 MG/ML 10 ML VIAL (for RAD DIAG) IVCONTRAST ONE (23:20)
[2017-11-22 23:21] VITALS: BP 127/58; PULSE 88; RESP 18; TEMP 98.6; O2SAT 98
--- NOTE | 2017-11-22 23:44 | RADRPT ---
EXAM DATE/TIME: 11/22/2017 22:56 [facility] COMPARISON: No previous studies available for comparison. INDICATIONS : Left femur pain; swelling. IV CONTRAST: 100 cc Omnipaque 350 (iohexol) IV RADIATION DOSE: 28.05 CTDIvol (mGy) MEDICAL HISTORY : None SURGICAL HISTORY : femur kaley 09/2017 ENCOUNTER: Initial ACUITY: 1 day PAIN SCALE: 8/10 LOCATION: Left femur TECHNIQUE: Volumetric scanning of the femur was performed. Using automated exposure control and adjustment of t he mA and/or kV according to patient size, radiation dose was kept as low as reasonably achievable to obtain optimal diagnostic quality images. DICOM format image data is available electronically for review and comparison. FINDINGS: There is an intramedullary kaley within the femur or fixating fracture in the midshaft. There are sever al adjacent bony fragments. There is some exuberant periosteal reaction. There is some soft tissue pr ominence in the region of the fracture and some areas of slight low-density measuring 2.3 x 1.6 cm an teriorly and smaller one measuring 11 m. These could be some small abscesses. CONCLUSION: 1. Internal fixation fixating slightly comminuted fracture mid shaft of the femur. There is some prom inent edema/ soft tissue swelling and 2 areas of low density measuring 2.3 and 1.1 cm. These could be related to small abscesses. Xu Brownlee MD on November 22, 2017 at 23:40 Board Certified Radiologist. This report was verified electronically.
[2017-11-23] VITALS (7 sets, daily range): BP systolic 110–129; BP diastolic 59–80; PULSE 61–76; RESP 16–20; TEMP 97.5–98.9; O2SAT 98–100
--- NOTE | 2017-11-23 01:11 | PD ---
Physical Exam Narrative I, Dr. Ren, have reviewed the advance practice practitioner's documentation and am in agreement, met with the patient face to face, made the diagnosis, and the medical decision making was done by me. *My assessment and Findings: Patient is a 27 year old male who comes in complaining of pain and swelling to his left leg where he had a femur fracture repaired. He says the swelling and pain have been getting worse over the past 4 days. Exam shows swelling around the surgical site, warm to the touch. No drainage from the surgical site. Data Data Last Documented VS Vital Signs Date Time Temp Pulse Resp B/P (MAP) Pulse Ox O2 Delivery O2 Flow Rate FiO2 11/22/17 23:21 98.6 88 18 127/58 (81) 98 Room Air Orders Orders Complete Blood Count With Diff (11/22/17 17:24) Comprehensive Metabolic Panel (11/22/17 17:24) Prothrombin Time / Inr (Pt) (11/22/17 17:24) Act Partial Throm Time (Ptt) (11/22/17 17:24) Femur (Ap & Lat/2vws) (11/22/17 ) Blood Culture (11/22/17 20:53) Iv Access Insert/Monitor (11/22/17 20:53) Ecg Monitoring (11/22/17 20:53) Oximetry (11/22/17 20:53) Ct Femur W Iv Contrast (11/22/17 ) Westergren Sedimentation Rate (11/22/17 20:53) Us Leg Venous Doppler (11/22/17 ) Lactic Acid Sepsis Protocol (11/22/17 21:08) Ketorolac Inj (Toradol Inj) (11/22/17 21:15) Vancomycin Inj (Vancomycin Inj) (11/22/17 21:15) C-Reactive Protein (Crp) (11/22/17 17:24) Morphine Inj (Morphine Inj) (11/22/17 23:00) Iohexol 350 Inj (Omnipaque 350 Inj) (11/22/17 23:20) Labs Laboratory Tests Test 11/22/17 20:35 11/22/17 20:55 11/23/17 00:04 Blood Urea Nitrogen 11 MG/DL Creatinine 1.05 MG/DL Random Glucose 87 MG/DL Total Protein 8.2 GM/DL Albumin 3.1 GM/DL Calcium Level 8.3 MG/DL Alkaline Phosphatase 232 U/L Aspartate Amino Transf (AST/SGOT) 42 U/L Alanine Aminotransferase (ALT/SGPT) 27 U/L Total Bilirubin 0.4 MG/DL Sodium Level 135 MEQ/L Potassium Level 3.9 MEQ/L Chloride Level 102 MEQ/L Carbon Dioxide Level 25.4 MEQ/L Anion Gap 8 MEQ/L Estimat Glomerular Filtration Rate 103 ML/MIN C-Reactive Protein 6.30 MG/DL White Blood Count 6.7 TH/MM3 Red Blood Count 4.21 MIL/MM3 Hemoglobin 12.1 GM/DL Hematocrit 36.0 % Mean Corpuscular Volume 85.5 FL Mean Corpuscular Hemoglobin 28.7 PG Mean Corpuscular Hemoglobin Concent 33.5 % Red Cell Distribution Width 16.2 % Platelet Count 374 TH/MM3 Mean Platelet Volume 8.2 FL Neutrophils (%) (Auto) 65.6 % Lymphocytes (%) (Auto) 23.4 % Monocytes (%) (Auto) 8.1 % Eosinophils (%) (Auto) 2.5 % Basophils (%) (Auto) 0.4 % Neutrophils # (Auto) 4.4 TH/MM3 Lymphocytes # (Auto) 1.6 TH/MM3 Monocytes # (Auto) 0.5 TH/MM3 Eosinophils # (Auto) 0.2 TH/MM3 Basophils # (Auto) 0.0 TH/MM3 CBC Comment DIFF FINAL Differential Comment Erythrocyte Sedimentation Rate 49 mm/hr Prothrombin Time 10.2 SEC Prothromb Time International Ratio 1.0 RATIO Activated Partial Thromboplast Time 29.3 SEC Lactic Acid Level 2.4 mmol/L 1.3 mmol/L [facility] Supervised Visit with FREDDIE: Yes Narrative Course Labs show elevated ESR and CRP. CT scan concerning for infection. Last 24 hours Impressions Lower Extremity Ultrasound 11/22/17 Signed Impressions: Service Date/Time: Wednesday, November 22, 2017 22:13 - CONCLUSION: Normal examination. Johny Ellison MD Lower Extremity CT 11/22/17 Signed Impressions: Service Date/Time: Wednesday, November 22, 2017 22:56 - CONCLUSION: 1. Internal fixation fixating slightly comminuted fracture mid shaft of the femur. There is some prominent edema/ soft tissue swelling and 2 areas of low density measuring 2.3 and 1.1 cm. These could be related to small abscesses. Xu Brownlee MD Femur X-Ray 11/22/17 0000 Signed Impressions: Service Date/Time: Wednesday, November 22, 2017 17:52 - CONCLUSION: 1. Postoperative fixation of the left femur as above. No acute fracture. Johny Ellison MD I spoke with the PA for Dr. Stuart who suggests observation and they will see the patient in the morning. Given Vancomycin and pain medicine. Diagnosis Primary Impression: Surgical site infection Qualified Codes: T81.4XXA - Infection following a procedure, initial encounter Admitting Information Admitting Physician Requests: Observation Marge Ren MD Nov 23, 2017 01:10
[2017-11-23] MEDS ORDERED: SENNOSIDES 8.6 MG TAB PO PRN (03:15)
[2017-11-23] MEDS ORDERED: PIPERACIL-TAZO 3.375 GM PREMIX 50 ML IV ONE (03:15)
[2017-11-23] MEDS ORDERED: Vancomycin Consult Pharmacy 1 EA OTHER SCH (03:15)
[2017-11-23] MEDS ORDERED: LACTULOSE SYRUP 20 GM/30 ML CUP PO PRN (03:15)
[2017-11-23] MEDS ORDERED: NALOXONE HCL 0.4 MG/ML AMP IV PUSH PRN (03:15)
[2017-11-23] MEDS ORDERED: ONDANSETRON HCL 4 MG/2 ML VIAL IVP PRN (03:15)
[2017-11-23] MEDS ORDERED: BISACODYL 10 MG SUPP RECTAL PRN (03:15)
[2017-11-23] MEDS ORDERED: ACETAMINOPHEN 325 MG TAB PO PRN (03:15)
[2017-11-23] MEDS ORDERED: MAGNESIUM HYDROXIDE SUSP 30 ML CUP PO PRN (03:15)
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
[2017-11-23] MEDS: SODIUM CHLOR 0.9% 1000 ML INJ 1,000 ML IV SCH ×2 (03:35→14:51)
[2017-11-23] MEDS: VANCOMYCIN INJ 1,700 MG in SODIUM CHLORID 0.9% 500 ML INJ 500 ML IV SCH ×2 (04:26→17:07)
[2017-11-23] MEDS: MORPHINE SULFATE 4 MG/ML INJ IV PUSH PRN ×3 (05:11→14:52)
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
[2017-11-23] MEDS ORDERED: VANCOMYCIN INJ 1,000 MG in SODIUM CHLOR 0.9% 250 ML INJ 250 ML IV SCH (09:15)
[2017-11-23] MEDS: DOCUSATE SODIUM 50 MG/SENNA 8.6 MG TAB PO SCH (09:35)
[2017-11-23] MEDS: SODIUM CHLORIDE 0.9% FLUSH 10 ML FLUSH IV FLUSH SCH (09:36)
[2017-11-23] MEDS: PIPERACIL-TAZO 3.375 GM PREMIX 50 ML IV SCH ×2 (09:36→14:51)
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
[2017-11-23] MEDS: ACETAMINOPHEN/HYDROcodone 325 MG/5 MG TAB PO PRN (17:08)
[2017-11-23] MEDS: KETOROLAC TROMETHAMINE 30 MG/ML (IVP) VIAL IV PUSH SCH (18:11)
[2017-11-23] MEDS: REMOVE OLD PATCH T-DERMAL SCH (18:45)
[2017-11-23] MEDS: QUEtiapine FUMARATE 300 MG TAB PO SCH (21:00)
[2017-11-24] VITALS (7 sets, daily range): BP systolic 105–139; BP diastolic 60–86; PULSE 59–104; RESP 16–18; TEMP 97.5–98.7; O2SAT 97–99
[2017-11-24] MEDS: PIPERACIL-TAZO 3.375 GM PREMIX 50 ML IV SCH ×4 (00:04→15:05)
[2017-11-24] MEDS: DOCUSATE SODIUM 50 MG/SENNA 8.6 MG TAB PO SCH ×3 (00:04→20:24)
[2017-11-24] MEDS: NICOTINE 14 MG/24 HR PATCH T-DERMAL SCH ×2 (00:04→08:37)
[2017-11-24] MEDS: KETOROLAC TROMETHAMINE 30 MG/ML (IVP) VIAL IV PUSH SCH ×5 (00:05→23:03)
[2017-11-24] MEDS: SODIUM CHLORIDE 0.9% FLUSH 10 ML FLUSH IV FLUSH SCH ×3 (00:05→23:02)
[2017-11-24] MEDS: SODIUM CHLOR 0.9% 1000 ML INJ 1,000 ML IV SCH ×3 (00:05→15:05)
[2017-11-24] MEDS: ACETAMINOPHEN/HYDROcodone 325 MG/5 MG TAB PO PRN ×3 (00:10→13:10)
[2017-11-24] MEDS ORDERED: PHARMACY ORDERED LAB ONE (03:45)
[2017-11-24] MEDS: VANCOMYCIN INJ 1,700 MG in SODIUM CHLORID 0.9% 500 ML INJ 500 ML IV SCH ×2 (04:57→16:41)
[2017-11-24] MEDS: REMOVE OLD PATCH T-DERMAL SCH (08:37)
[2017-11-24] MEDS ORDERED: HYDR-3516 PO (09:41)
[2017-11-24] MEDS ORDERED: IBUP1TAB5 PO (09:41)
--- NOTE | 2017-11-24 09:42 | HHI.DCPOC ---
Discharge Care Plan Diagnosis: (1) Surgical site infection (2) Leg fracture, left Your Health Problems Are: Difficulty with ADL Inflammation Swelling Goals to Promote Your Health * To prevent worsening of your condition and complications * To maintain your health at the optimal level Directions to Meet Your Goals Take your medications as prescribed Follow your dietary instruction Follow activity as directed Keep your appointments as scheduled Take your immunizations and boosters as scheduled If your symptoms worsen call your PCP, if no PCP go to Urgent Care Center or Emergency Room Smoking is Dangerous to Your Health. Avoid second hand smoke Call the 24-hour hour crisis hotline for domestic abuse at Mohini Lozano Nov 24, 2017 09:42
[2017-11-24 10:33] LABS: AUTOMATED NEUTROPHIL # 1.3 TH/MM3 (1.8-7.7); BASOPHIL % 0.7 % (0.0-2.0); EOSINOPHIL # 0.2 TH/MM3 (0-0.4); EOSINOPHIL % 6.2 % (0.0-4.0); HEMATOCRIT 36.5 % (39.0-51.0); HEMOGLOBIN 11.8 GM/DL (13.0-17.0); LYMPH % 40.3 % (9.0-44.0); LYMPHOCYTE # 1.2 TH/MM3 (1.0-4.8); MEAN CELL VOLUME 86.5 FL (80.0-100.0); MEAN CORPUSCULAR HEMOGLOBIN 28.1 PG (27.0-34.0); MEAN CORPUSCULAR HGB CONC 32.5 % (32.0-36.0); MONO % 9.3 % (0.0-8.0); MONOCYTE # 0.3 TH/MM3 (0-0.9); NEUT % 43.5 % (16.0-70.0); PLATELET COUNT 330 TH/MM3 (150-450); RED BLOOD COUNT 4.22 MIL/MM3 (4.50-5.90); RED CELL DISTRIBUTION WIDTH 16.2 % (11.6-17.2)
[2017-11-24 10:58] LABS: BICARBONATE 29.8 MEQ/L (21.0-32.0); C-REACTIVE PROTEIN 1.98 MG/DL (0.00-0.30); CREATININE 0.81 MG/DL (0.60-1.30)
[2017-11-24] MEDS: SODIUM CHLORIDE 0.9% FLUSH 10 ML FLUSH IV FLUSH PRN ×2 (12:17→18:59)
[2017-11-24] MEDS ORDERED: oxyCODONE/ACETAMINOPHEN 7.5 MG/325 MG TAB PO PRN (19:00)
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
[2017-11-24] MEDS: oxyCODONE/ACETAMINOPHEN 10 MG/325 MG TAB PO PRN (20:24)
[2017-11-24] MEDS: QUEtiapine FUMARATE 300 MG TAB PO SCH (20:25)
[2017-11-24] MEDS: BACLOFEN 10 MG TAB PO SCH (23:02)
[2017-11-25 04:04] VITALS: BP 130/69; PULSE 78; RESP 18; TEMP 97.6; O2SAT 100
[2017-11-25] MEDS: BACLOFEN 10 MG TAB PO SCH (05:41)
[2017-11-25] MEDS: KETOROLAC TROMETHAMINE 30 MG/ML (IVP) VIAL IV PUSH SCH ×2 (05:41→11:38)
[2017-11-25] MEDS: oxyCODONE/ACETAMINOPHEN 10 MG/325 MG TAB PO PRN ×2 (05:42→09:09)
[2017-11-25] MEDS ORDERED: OXYC1TAB36 PO (07:42)
[2017-11-25] MEDS ORDERED: BACL10TA PO (07:42)
[2017-11-25 07:48] LABS: HEMATOCRIT 32.7 % (39.0-51.0); HEMOGLOBIN 10.6 GM/DL (13.0-17.0); MEAN CELL VOLUME 86.3 FL (80.0-100.0); MEAN CORPUSCULAR HEMOGLOBIN 27.9 PG (27.0-34.0); MEAN CORPUSCULAR HGB CONC 32.3 % (32.0-36.0); MEAN PLATELET VOLUME 7.8 FL (7.0-11.0); PLATELET COUNT 341 TH/MM3 (150-450); RED BLOOD COUNT 3.79 MIL/MM3 (4.50-5.90); RED CELL DISTRIBUTION WIDTH 15.9 % (11.6-17.2); WHITE BLOOD COUNT 3.5 TH/MM3 (4.0-11.0)
[2017-11-25 08:00] VITALS: BP 130/83; PULSE 65; RESP 20; TEMP 96.3; O2SAT 100
[2017-11-25 08:10] LABS: CALCIUM 8.2 MG/DL (8.5-10.1); CREATININE 0.8 MG/DL (0.60-1.30)
[2017-11-25] MEDS: REMOVE OLD PATCH T-DERMAL SCH (09:00)
[2017-11-25] MEDS: DOCUSATE SODIUM 50 MG/SENNA 8.6 MG TAB PO SCH (09:00)
[2017-11-25] MEDS: NICOTINE 14 MG/24 HR PATCH T-DERMAL SCH (09:09)
[2017-11-25] MEDS: SODIUM CHLORIDE 0.9% FLUSH 10 ML FLUSH IV FLUSH SCH (09:09)
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
[2017-11-25 12:00] VITALS: BP 128/74; PULSE 82; RESP 19; TEMP 98; O2SAT 100
[2017-11-25] MEDS ORDERED: IBUP1TAB5 PO (12:00)
[2017-11-25 12:47] VITALS: RESP 20
== END 2017-11-25 14:58 | disposition home or self-care (01) ==
LOC: NEPE 17:06 → NEDA 11-23 01:28 → NEDH 11-23 05:51 → NEPHCDU 11-23 17:12
PROVIDERS: ADMIT Hospitalist; ATTEND Hospitalist
DX: T81.4XXA Infection following a procedure, initial encounter (principal); R70.0 Elevated erythrocyte sedimentation rate; F43.21 Adjustment disorder with depressed mood; F17.200 Nicotine dependence, unspecified, uncomplicated; F14.10 Cocaine abuse, uncomplicated; F19.10 Other psychoactive substance abuse, uncomplicated
CPT/HCPCS: 73552; 73701; 80048; 80053; 80202; 83605; 85025; 85027; 85610; 85652; 85730; 86140; 87040; 93971; 96361; 96365; 96366; 96368; 96375; 96376; 97161; 99285; E0113; G0378; G8987; G8988; J1885; J2270; J2405; J2543; J3370; J7030; J7040; J7050; Q9967

== ENCOUNTER 2017-12-09 09:53 | Inpatient (IN) | payer SELFPAY ==
[~2017-12-09] VITALS: Ht 185.4 cm; Wt 74.0 kg
[~2017-12-09 09:53] MED LIST changes: +BACL10TA PO; -ENOX30P SQ; -HYDR-3516 PO; +IBUP1TAB5 PO; -MORP4INJ3 IV PUSH; -PERI PO; -XARE10TA PO
[2017-12-09 10:06] VITALS: BP 138/75; PULSE 120; RESP 20; TEMP 97.9; O2SAT 100
[2017-12-09] MEDS ORDERED: KETOROLAC TROMETHAMINE 30 MG/ML (IVP) VIAL IV PUSH ONE (10:45)
--- NOTE | 2017-12-09 10:52 | PD ---
HPI Chief Complaint: Edema Time Seen by Provider: 10:32 Travel History International Travel<30 days: No Contact w/Intl Traveler<30days: No Traveled to known affect area: No History of Present Illness HPI 27-year-old male complains of pain and swelling left thigh. Patient has history of left femur fracture status post ORIF in September 2016. Patient was admitted to [facility] November 23 at discharge November 25 for increasing pain swelling of the left leg. CT scan of the left leg at that time showed possible abscess. Orthopedics consultation was obtained and was determined that is not an infection. Patient was discharged home with pain medication. Patient states that he did not fill the prescription for medication. Patient returned today complains increasing pain and swelling in the left leg. Patient denies any fever chills. Patient states the pain is severe pain sharp pain localized to left thigh area. Patient denies any pain radiation. On a scale of 1-10 the pain is a 10. Patient was seen in the emergency room at [facility] yesterday and ultrasound left leg negative for DVT. Patient has history of adjustment disorder status post recent suicide attempt. PFSH Past Medical History ADHD: Yes Cancer: No Cardiovascular Problems: No Diabetes: No Diminished Hearing: No Endocrine: No Genitourinary: No Headaches: No Hepatitis: No Hiatal Hernia: No Immune Disorder: No Musculoskeletal: Yes (LEFT FEMUR FRACTURE) Neurologic: No Psychiatric: No Reproductive: Yes Respiratory: No Immunizations Current: Yes Seizures: No Thyroid Disease: No Ulcer: No Past Surgical History AICD: No Appendectomy: No Body Medical Devices: SCREW/PINS/PLATES IN LEFT FEMUR Ear Surgery: No Joint Replacement: No Pacemaker: No Prostatectomy: No Social History Alcohol Use: No Tobacco Use: Yes (3 CIGS DAILY) Substance Use: No Allergies-Medications (Allergen,Severity, Reaction): Coded Allergies: No Known Allergies (Verified Allergy, Unknown, 11/23/17) Reported Meds & Prescriptions Reported Meds & Active Scripts Active Ibuprofen 400 Mg Tab 400 Mg PO Q8H PRN 3 Days Take with food Baclofen 10 Mg Tab 10 Mg PO Q8HR Oxycodone-Acetaminophen 10-325 (Oxycodone HCl/Acetaminophen) 10 Mg-325 Mg Tablet 1 Tab PO Q4H PRN Wheelchair (Device) 1 Mis Mis Ea .XX DIRECTED Walker/Adult/Folding (Device) 1 Mis Mis Ea .XX DIRECTED Quetiapine (Quetiapine Fumarate) 300 Mg Tab 300 Mg PO HS Thera Tablet (Multivitamin with Folic Acid) 400 Mcg Tablet 1 Tab PO DAILY 30 Days Gnp Vitamin B-1 (Thiamine HCl) 100 Mg Tab 100 Mg PO DAILY 30 Days Folic Acid 1 Mg Tablet 1 Mg PO DAILY 30 Days Pantoprazole (Pantoprazole Sodium) 40 Mg Tab 40 Mg PO DAILY 30 Days Oyster Shell 250 mg + Vit D Tb (Calcium/Vitamin D) 250 Mg Calcium (625 Mg)-125 Unit Tablet 250 Mg PO TID 30 Days Review of Systems General / Constitutional: No: Fever Eyes: No: Visual changes HENT: No: Headaches Cardiovascular: No: Chest Pain or Discomfort Respiratory: No: Shortness of Breath Gastrointestinal: No: Abdominal Pain Genitourinary: No: Dysuria Musculoskeletal: Positive: Edema, Pain Skin: No Rash Neurologic: No: Weakness Psychiatric: No: Depression Endocrine: No: Polydipsia Hematologic/Lymphatic: No: Easy Bruising Physical Exam Narrative GENERAL: Well-nourished, well-developed patient. SKIN: Focused skin assessment warm/dry. HEAD: Normocephalic. EYES: No scleral icterus. No injection or drainage. NECK: Supple, trachea midline. No JVD or lymphadenopathy. CARDIOVASCULAR: Regular rate and rhythm without murmurs, gallops, or rubs. RESPIRATORY: Breath sounds equal bilaterally. No accessory muscle use. GASTROINTESTINAL: Abdomen soft, non-tender, nondistended. MUSCULOSKELETAL: No cyanosis, or edema. BACK: Nontender without obvious deformity. No CVA tenderness. Patient has moderate tenderness localized to left thigh area. Soft tissue swelling noted. No induration noted. Sensory motor function distally intact. Data Data Last Documented VS Vital Signs Date Time Temp Pulse Resp B/P (MAP) Pulse Ox O2 Delivery O2 Flow Rate FiO2 12/09/17 13:33 101 18 129/80 (96) 99 Room Air 12/09/17 10:06 97.9 Orders Orders Complete Blood Count With Diff (12/09/17 10:38) Comprehensive Metabolic Panel (12/09/17 10:38) C-Reactive Protein (Crp) (12/09/17 10:38) [place] Sedimentation Rate (12/09/17 10:38) Iv Access Insert/Monitor (12/09/17 10:38) Ecg Monitoring (12/09/17 10:38) Oximetry (12/09/17 10:38) Ct Femur W Iv Contrast (12/09/17 ) Sodium Chlor 0.9% 1000 Ml Inj (Ns 1000 M (12/09/17 10:45) Ketorolac Inj (Toradol Inj) (12/09/17 10:45) Femur (Ap & Lat/2vws) (12/09/17 10:52) Blood Culture (12/09/17 10:56) Vancomycin Inj (Vancomycin Inj) (12/09/17 11:45) Iohexol 350 Inj (Omnipaque 350 Inj) (12/09/17 12:11) Sodium Chlor 0.9% 1000 Ml Inj (Ns 1000 M (12/09/17 14:30) Labs Laboratory Tests Test 12/09/17 10:55 White Blood Count 12.3 TH/MM3 Red Blood Count 4.57 MIL/MM3 Hemoglobin 12.5 GM/DL Hematocrit 38.2 % Mean Corpuscular Volume 83.6 FL Mean Corpuscular Hemoglobin 27.4 PG Mean Corpuscular Hemoglobin Concent 32.8 % Red Cell Distribution Width 17.9 % Platelet Count 416 TH/MM3 Mean Platelet Volume 7.6 FL Neutrophils (%) (Auto) 84.3 % Lymphocytes (%) (Auto) 7.0 % Monocytes (%) (Auto) 8.1 % Eosinophils (%) (Auto) 0.2 % Basophils (%) (Auto) 0.4 % Neutrophils # (Auto) 10.3 TH/MM3 Lymphocytes # (Auto) 0.9 TH/MM3 Monocytes # (Auto) 1.0 TH/MM3 Eosinophils # (Auto) 0.0 TH/MM3 Basophils # (Auto) 0.0 TH/MM3 CBC Comment DIFF FINAL Differential Comment Erythrocyte Sedimentation Rate 55 mm/hr Blood Urea Nitrogen 13 MG/DL Creatinine 0.94 MG/DL Random Glucose 79 MG/DL Total Protein 8.6 GM/DL Albumin 3.0 GM/DL Calcium Level 9.4 MG/DL Alkaline Phosphatase 292 U/L Aspartate Amino Transf (AST/SGOT) 26 U/L Alanine Aminotransferase (ALT/SGPT) 28 U/L Total Bilirubin 0.6 MG/DL Sodium Level 133 MEQ/L Potassium Level 4.2 MEQ/L Chloride Level 96 MEQ/L Carbon Dioxide Level 27.7 MEQ/L Anion Gap 9 MEQ/L Estimat Glomerular Filtration Rate 117 ML/MIN C-Reactive Protein 20.00 MG/DL MDM Medical Decision Making Medical Screen Exam Complete: Yes Emergency Medical Condition: Yes Interpretation(s) 11:44 AM. Last Impressions Femur X-Ray 12/09/17 1052 Signed Impressions: Service Date/Time: November 11:08 - CONCLUSION: Healing fracture midshaft left femur with IM nail in good position. Xavier Rodríguez MD 11:44 AM. CBC WBC 12.3. Hemoglobin 12.5 hematocrit 30.2. 84 neutrophil. Sodium 133. Alkaline phosphatase 292. C-reactive protein 20. [address] scan of the left thigh shows no abscess identified. Differential Diagnosis Differential diagnosis including postop pain, cellulitis, abscess. Narrative Course 27-year-old male with increasing pain swelling left thigh. History left femur fracture status post ORIF in September 2016. Normal saline solution 1 25 cc an hour. Toradol 30 mg IV. Vancomycin 1 g IV. Diagnosis Primary Impression: Left leg cellulitis Admitting Information Admitting Physician Requests: Admit Francisco Javier Ivy MD Dec 09, 2017 10:52
[2017-12-09 11:16] LABS: AUTOMATED NEUTROPHIL # 10.3 TH/MM3 (1.8-7.7); BASOPHIL % 0.4 % (0.0-2.0); EOSINOPHIL % 0.2 % (0.0-4.0); HEMATOCRIT 38.2 % (39.0-51.0); HEMOGLOBIN 12.5 GM/DL (13.0-17.0); LYMPHOCYTE # 0.9 TH/MM3 (1.0-4.8); MEAN CELL VOLUME 83.6 FL (80.0-100.0); MEAN CORPUSCULAR HEMOGLOBIN 27.4 PG (27.0-34.0); MEAN CORPUSCULAR HGB CONC 32.8 % (32.0-36.0); MEAN PLATELET VOLUME 7.6 FL (7.0-11.0); MONO % 8.1 % (0.0-8.0); NEUT % 84.3 % (16.0-70.0); PLATELET COUNT 416 TH/MM3 (150-450); RED BLOOD COUNT 4.57 MIL/MM3 (4.50-5.90); RED CELL DISTRIBUTION WIDTH 17.9 % (11.6-17.2); WHITE BLOOD COUNT 12.3 TH/MM3 (4.0-11.0)
[2017-12-09] MEDS: SODIUM CHLOR 0.9% 1000 ML INJ 1,000 ML IV SCH ×3 (11:25→17:57)
--- NOTE | 2017-12-09 11:31 | RADRPT ---
EXAM DATE/TIME: 12/09/2017 11:08 [facility] COMPARISON: FEMUR LEFT (AP & LAT/2VWS), November 22, 2017, 17:52. INDICATIONS : Left leg swelling for 4 days. No injury. MEDICAL HISTORY : None. SURGICAL HISTORY : ORIF left femur. ENCOUNTER: Initial ACUITY: 1 day PAIN SCORE: 8/10 LOCATION: Left femur. FINDINGS: Two view examination of the left femur demonstrates an IM nail with proximal and distal interlocking screws. There is a significant amount of periosteal reaction along the comminuted fracture in the mid shaft similar to the previous study. No visible complication of the hardware. Bony mineralization is normal. The soft tissue structures are intact. CONCLUSION: Healing fracture midshaft left femur with IM nail in good position. Xavier Rodríguez MD on December 09, 2017 at 11:27 Board Certified Radiologist. This report was verified electronically.
[2017-12-09 11:33] LABS: ALT (GPT) 28 U/L (12-78); AST (GOT) 26 U/L (15-37); BICARBONATE 27.7 MEQ/L (21.0-32.0); BLOOD UREA NITROGEN 13 MG/DL (7-18); CALCIUM 9.4 MG/DL (8.5-10.1); CHLORIDE 96 MEQ/L (98-107); CREATININE 0.94 MG/DL (0.60-1.30); GLOMERULAR FILTRATION RATE 117 ML/MIN (>89); GLUCOSE,RANDOM 79 MG/DL (74-106); SODIUM (NA) 133 MEQ/L (136-145)
[2017-12-09 11:38] LABS: ALKALINE PHOSPHATASE 292 U/L (45-117); TOTAL BILIRUBIN ADULT 0.6 MG/DL (0.2-1.0); TOTAL PROTEIN 8.6 GM/DL (6.4-8.2)
[2017-12-09] MEDS ORDERED: VANCOMYCIN INJ 1,000 MG in SODIUM CHLOR 0.9% 250 ML INJ 250 ML IV ONE (11:45)
[2017-12-09] MEDS ORDERED: IOHEXOL 350 MG/ML 10 ML VIAL (for RAD DIAG) IVCONTRAST ONE (12:11)
--- NOTE | 2017-12-09 12:38 | RADRPT ---
EXAM DATE/TIME: 12/09/2017 12:04 [facility] COMPARISON: FEMUR LEFT (AP & LAT/2VWS), November 22, 2017, 17:52. CT FEMUR LEFT W CONTRAST, November 22, 2017, 22:56. INDICATIONS : Increased swelling left femur. Surgery 2 months ago followup areas of low density seen on prior study and possible abscess. IV CONTRAST: 94 cc Omnipaque 350 (iohexol) IV RADIATION DOSE: 10.78 CTDIvol (mGy) MEDICAL HISTORY : None SURGICAL HISTORY : None. ENCOUNTER: Subsequent ACUITY: 2 days PAIN SCALE: 5/10 LOCATION: Left leg TECHNIQUE: Volumetric scanning of the femur was performed. Using automated exposure control and adjustment of t he mA and/or kV according to patient size, radiation dose was kept as low as reasonably achievable to obtain optimal diagnostic quality images. DICOM format image data is available electronically for review and comparison. FINDINGS: The patient is again noted to be status post open rigid internal fixation of a mid femur fractur e with intramedullary kaley in place with streak artifact. There is exuberant reactive bone formation a gain noted around fracture site which is increased mildly compared to the prior study. The previously noted to low density areas along the anterior femur are no longer visualized. There is diffuse soft tissue swelling with no discrete focal abnormality noted in the adjacent soft tissues. CONCLUSION: 1. The previously noted to lead density collections along the anterior mid femur are no longer visual ized. There is no distinct abscess identified. 2. Healing fracture deformity of the mid femur status post open rigid internal fixation with interval increase in surrounding reactive bone and callus. Pavan Sy MD on December 09, 2017 at 12:31 Board Certified Radiologist. This report was verified electronically.
[2017-12-09 13:33] VITALS: BP 129/80; PULSE 101; RESP 18; O2SAT 99
[2017-12-09] MEDS ORDERED: SODIUM CHLORIDE 0.9% FLUSH 10 ML FLUSH IV FLUSH PRN (15:15)
[2017-12-09] MEDS ORDERED: NALOXONE HCL 0.4 MG/ML AMP IV PUSH PRN (15:15)
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
[2017-12-09] MEDS ORDERED: Vancomycin Consult Pharmacy 1 EA OTHER SCH (17:00)
--- NOTE | 2017-12-09 17:28 | RADRPT ---
EXAM DATE/TIME: 12/09/2017 17:09 [facility] COMPARISON: CHEST SINGLE AP, September 25, 2017, 4:00. INDICATIONS : Fever. MEDICAL HISTORY : Smoker. SURGICAL HISTORY : None. ENCOUNTER: Subsequent ACUITY: 1 day PAIN SCORE: 0/10 LOCATION: Bilateral chest FINDINGS: A single view of the chest demonstrates the lungs to be symmetrically aerated without evidence of mas s, infiltrate or effusion. The cardiomediastinal contours are unremarkable. Osseous structures are intact. CONCLUSION: Normal examination. Xavier Rodríguez MD on December 09, 2017 at 17:26 Board Certified Radiologist. This report was verified electronically.
[2017-12-09] MEDS: CALCIUM/VITAMIN D 250 MG/125 U TAB PO SCH (17:56)
[2017-12-09] MEDS: PIPERACIL-TAZO 4.5 GM PREMIX 100 ML IV SCH (17:56)
[2017-12-09] MEDS: MORPHINE SULFATE 2 MG/ML SYRINGE IV PUSH PRN ×2 (17:57→22:06)
--- NOTE | 2017-12-09 18:49 | RADRPT ---
EXAM DATE/TIME: 12/09/2017 18:25 [facility] COMPARISON: CT FEMUR LEFT W CONTRAST, December 09, 2017, 12:04. US LEG LEFT VENOUS DOPPLER, November 22, 2017, 22:13. INDICATIONS : Left leg cellulitis. MEDICAL HISTORY : Left leg cellulitis s/p infection from femur fracture. SURGICAL HISTORY : Left femur fracture fixation. I&D Left thigh. ENCOUNTER: Subsequent ACUITY: 2 weeks PAIN SCORE: 5/10 LOCATION: Left leg. TECHNIQUE: Venous ultrasound of the leg was performed from the inguinal ligament to the proximal calf. Real-jennifer e, color Doppler and spectral tracing, compression and augmentation techniques were used. FINDINGS: There is normal compressibility of the deep venous system from the inguinal region to the proximal ca lf. No echogenic clot is seen in the lumen of the common femoral, femoral, popliteal, and posterior tibial veins. There is a normal response of the venous system to proximal and distal augmentation an d respiration. CONCLUSION: Negative study. No venous thrombosis of the left lower extremity. Jorje Monroy MD on December 09, 2017 at 18:46 Board Certified Radiologist. This report was verified electronically.
[2017-12-09 20:00] VITALS: BP 129/58; PULSE 102; PULSE 103; RESP 18; TEMP 98.2; O2SAT 96
[2017-12-09] MEDS: SODIUM CHLORIDE 0.9% FLUSH 10 ML FLUSH IV FLUSH SCH (21:00)
[2017-12-09 22:00] VITALS: PULSE 106
[2017-12-09] MEDS: QUEtiapine FUMARATE 300 MG TAB PO SCH (22:06)
[2017-12-09] MEDS: VANCOMYCIN INJ 1,250 MG in SODIUM CHLOR 0.9% 250 ML INJ 250 ML IV SCH (22:17)
[2017-12-10] VITALS: BP 132/62; PULSE 110; PULSE 121; PULSE 87; RESP 16; TEMP 98; O2SAT 98
[2017-12-10] MEDS: PIPERACIL-TAZO 4.5 GM PREMIX 100 ML IV SCH ×5 (00:35→23:42)
[2017-12-10] MEDS: SODIUM CHLOR 0.9% 1000 ML INJ 1,000 ML IV SCH ×7 (00:35→22:18)
[2017-12-10] MEDS: MORPHINE SULFATE 2 MG/ML SYRINGE IV PUSH PRN ×5 (02:21→21:12)
[2017-12-10 02:57] LABS: BILIRUBIN, URINE NEG (NEG); BLOOD, URINE NEG (NEG); GLUCOSE,URINE NEG (NEG); KETONE, URINE NEG (NEG); MUCUS URINE FEW /lpf (OCC); NITRITE,URINE NEG (NEG); SQUAMOUS EPITHELIAL CELL URINE <1 /hpf (0-5); URINE COLOR COLORLESS (YELLW/STRAW); URINE LEUKOCYTE ESTERASE NEG (NEG)
--- NOTE | 2017-12-10 07:20 | PD.ORT.PN ---
Subjective Subjective Remarks Continuing to have pain in left thigh with increased swelling Objective Vitals Vital Signs Date Time Temp Pulse Resp B/P (MAP) Pulse Ox O2 Delivery O2 Flow Rate FiO2 12/10/17 00:00 98.0 110 16 132/62 (85) 98 12/09/17 20:00 98.2 102 18 129/58 (81) 96 12/09/17 15:40 12/09/17 13:33 101 18 129/80 (96) 99 Room Air 12/09/17 10:44 116 18 99 Room Air 12/09/17 10:06 97.9 120 20 138/75 (96) 100 I/O 12/09/17 12/09/17 12/09/17 12/10/17 12/10/17 12/10/17 07:00 15:00 23:00 07:00 15:00 23:00 Intake Total 1250 ml Balance 1250 ml Intake IV Total 1250 ml # Bowel Movements 1 Result Diagram: 12/09/17 1055 12/09/17 1055 Imaging Last 24 hours Impressions Femur X-Ray 12/09/17 1052 Signed Impressions: Service Date/Time: November 11:08 - CONCLUSION: Healing fracture midshaft left femur with IM nail in good position. Xavier Rodríguez MD Objective Remarks Left lower extremity: Increased swelling since previously seen. Skin is intact with no open wounds or drainage. He has pain to palpation throughout the thigh. No pain to palpation below the knee. Distally intact sensation with active dorsiflexion and plantarflexion of foot Assessment & Plan Assessment and Plan Left severely comminuted open femur with intramedullary kaley fixation. He has elevated white blood cell count, C-reactive protein and sed rate. Blood cultures are pending. CT scan shows edema but no drainable abscess. Due to increased swelling I will make him n.p.o. after midnight and we will reexamine in the morning. Doppler ultrasounds are negative for DVT. Pavan Muhammad Jr. Dec 10, 2017 07:20
[2017-12-10 08:00] VITALS: BP 130/74; PULSE 109; RESP 21; TEMP 99.8; O2SAT 100
[2017-12-10 08:06] LABS: AUTOMATED NEUTROPHIL # 8.2 TH/MM3 (1.8-7.7); BASOPHIL % 0.2 % (0.0-2.0); EOSINOPHIL % 0.1 % (0.0-4.0); HEMATOCRIT 30.3 % (39.0-51.0); HEMOGLOBIN 10.1 GM/DL (13.0-17.0); LYMPH % 8.1 % (9.0-44.0); LYMPHOCYTE # 0.8 TH/MM3 (1.0-4.8); MEAN CELL VOLUME 83.5 FL (80.0-100.0); MEAN CORPUSCULAR HEMOGLOBIN 27.9 PG (27.0-34.0); MEAN CORPUSCULAR HGB CONC 33.4 % (32.0-36.0); MEAN PLATELET VOLUME 7.6 FL (7.0-11.0); MONO % 9.9 % (0.0-8.0); NEUT % 81.7 % (16.0-70.0); PLATELET COUNT 367 TH/MM3 (150-450); RED BLOOD COUNT 3.63 MIL/MM3 (4.50-5.90); RED CELL DISTRIBUTION WIDTH 17.7 % (11.6-17.2)
[2017-12-10 08:30] LABS: BICARBONATE 26.2 MEQ/L (21.0-32.0); CALCIUM 8.4 MG/DL (8.5-10.1); CREATININE 1.02 MG/DL (0.60-1.30)
[2017-12-10] MEDS: FOLIC ACID 1 MG TAB PO SCH (08:59)
[2017-12-10] MEDS: CALCIUM/VITAMIN D 250 MG/125 U TAB PO SCH ×3 (08:59→17:06)
[2017-12-10] MEDS: MULTIVITAMIN TAB PO SCH (08:59)
[2017-12-10] MEDS: VANCOMYCIN INJ 1,250 MG in SODIUM CHLOR 0.9% 250 ML INJ 250 ML IV SCH ×2 (09:00→21:16)
[2017-12-10] MEDS: SODIUM CHLORIDE 0.9% FLUSH 10 ML FLUSH IV FLUSH SCH ×2 (09:00→21:11)
[2017-12-10] MEDS ORDERED: INFLUENZA VIRUS VACCINE (QUADRIVALENT) 0.5 ML SYR IM ONE (10:00)
[2017-12-10 12:00] VITALS: BP 134/71; PULSE 109; RESP 18; TEMP 100.4; O2SAT 99
--- NOTE | 2017-12-10 12:40 | HHI.PR ---
Subjective Remarks She reports significant left thigh pain. Pain medication is helping. Objective Vitals Vital Signs Date Time Temp Pulse Resp B/P (MAP) Pulse Ox O2 Delivery O2 Flow Rate FiO2 12/10/17 08:00 99.8 109 21 130/74 (92) 100 12/10/17 00:00 121 12/10/17 00:00 98.0 110 16 132/62 (85) 98 12/09/17 20:00 98.2 102 18 129/58 (81) 96 12/09/17 20:00 103 12/09/17 15:40 12/09/17 13:33 101 18 129/80 (96) 99 Room Air I/O 12/09/17 12/09/17 12/09/17 12/10/17 12/10/17 12/10/17 07:00 15:00 23:00 07:00 15:00 23:00 Intake Total 1250 ml 1672 ml Balance 1250 ml 1672 ml Intake IV Total 1250 ml 1672 ml # Bowel Movements 1 Result Diagram: 12/10/17 0654 12/10/17 0654 Objective Remarks GENERAL: This is a well-nourished, well-developed patient, in no apparent distress. CARDIOVASCULAR: Normal rate and regular rhythm without murmurs, gallops, or rubs. RESPIRATORY: Good respiratory efforts. Breath sounds equal and clear to auscultation bilaterally. GASTROINTESTINAL: Abdomen soft, non-tender, non-distended. Normal active bowel sounds MUSCULOSKELETAL: Left medial thigh with healed scar. The whole left thigh is very swollen and tender to palpation. NEURO: Alert & Oriented x4 to person, place, time, situation. Moves all ext x4 PSYCH: Appropriate mood and affect. A/P Assessment and Plan 27-year-old male with: Left thigh with increasing swelling and pain: History left femur fracture status post ORIF in September 2016. -Imaging does not show any area of abscess, no DVT. However he has fevers, elevated acute phase reactants. History of IV drug use. - We will continue treating with empiric antibiotics including vancomycin and Zosyn. Follow blood cultures - Orthopedic surgery following and will reassess tomorrow. Patient n.p.o. after midnight. Based on orthopedics recommendations and patient's clinical condition, will consider ID consult in the future if needed. DVT prophylaxis with Lovenox. Rimpel,Ricardy MD Dec 10, 2017 12:40
[2017-12-10 16:00] VITALS: BP 117/60; PULSE 108; RESP 20; TEMP 100; O2SAT 98
[2017-12-10 20:00] VITALS: BP 127/75; PULSE 110; RESP 18; TEMP 102.8; O2SAT 98
[2017-12-10 21:00] VITALS: PULSE 113
[2017-12-10] MEDS: QUEtiapine FUMARATE 300 MG TAB PO SCH (21:11)
[2017-12-10] MEDS ORDERED: PHARMACY ORDERED LAB ONE (21:45)
[2017-12-10] MEDS: ACETAMINOPHEN 325 MG TAB PO PRN (22:18)
[2017-12-11] VITALS (8 sets, daily range): BP systolic 98–131; BP diastolic 55–74; PULSE 75–114; RESP 18–21; TEMP 97.9–100.4; O2SAT 98–100
[2017-12-11] MEDS: SODIUM CHLOR 0.9% 1000 ML INJ 1,000 ML IV SCH ×2 (02:32→05:39)
[2017-12-11] MEDS: PIPERACIL-TAZO 4.5 GM PREMIX 100 ML IV SCH ×3 (05:34→18:23)
[2017-12-11] MEDS: ACETAMINOPHEN 325 MG TAB PO PRN (05:34)
[2017-12-11] MEDS: MORPHINE SULFATE 2 MG/ML SYRINGE IV PUSH PRN (05:34)
--- NOTE | 2017-12-11 07:41 | PD.ORT.PN ---
Subjective Subjective Remarks Jay returned to the ER complaining of left thigh pain. Has noticed increased swelling and pain. Objective Vitals Vital Signs Date Time Temp Pulse Resp B/P (MAP) Pulse Ox O2 Delivery O2 Flow Rate FiO2 12/11/17 05:33 100.4 12/11/17 04:00 98.6 107 18 118/ 12/11/17 04:00 101 12/11/17 00:16 98.4 111 20 108/55 (72) 98 12/11/17 00:00 114 12/10/17 21:00 113 12/10/17 20:00 102.8 110 18 127/75 (92) 98 12/10/17 16:00 100.0 108 20 117/60 (79) 98 12/10/17 12:00 100.4 109 18 134/71 (92) 99 12/10/17 08:00 99.8 109 21 130/74 (92) 100 I/O 12/10/17 12/10/17 12/10/17 12/11/17 12/11/17 12/11/17 07:00 15:00 23:00 07:00 15:00 23:00 Intake Total 1672 ml 1000 ml 350 ml Output Total 1800 ml Balance 1672 ml 1000 ml -1450 ml Intake IV Total 1672 ml 1000 ml 350 ml Output Urine Total 1800 ml # Voids 3 Result Diagram: 12/10/17 0654 12/10/17 0654 Imaging Last 24 hours Impressions Femur X-Ray 12/09/17 1052 Signed Impressions: Service Date/Time: November 11:08 - CONCLUSION: Healing fracture midshaft left femur with IM nail in good position. Xavier Rodríguez MD Objective Remarks Left lower extremity: Increased swelling since previously seen. Skin is intact with no open wounds or drainage. He has pain to palpation throughout the thigh. No pain to palpation below the knee, and no joint effusion. Distally intact sensation with active dorsiflexion and plantarflexion of foot Assessment & Plan Assessment and Plan Left severely comminuted open femur with intramedullary kaley fixation. He has elevated white blood cell count, C-reactive protein and sed rate. Blood cultures are pending. CT scan shows edema but no drainable abscess. Due to elevated CRP and ESR, and continued pain and swelling I will plan on surgery today for irrigation debridement of left femur and bone biopsy to obtain cultures. If patient does have bone infection, he will likely need multiple surgeries. The risk and benefits of surgery were discussed in depth with patient and informed consent was obtained. Doppler ultrasounds are negative for DVT. Philip Stuart MD Dec 11, 2017 07:41
[2017-12-11] MEDS: MULTIVITAMIN TAB PO SCH (09:00)
[2017-12-11] MEDS: FOLIC ACID 1 MG TAB PO SCH (09:00)
[2017-12-11] MEDS: SODIUM CHLORIDE 0.9% FLUSH 10 ML FLUSH IV FLUSH SCH ×2 (09:00→21:21)
[2017-12-11] MEDS: CALCIUM/VITAMIN D 250 MG/125 U TAB PO SCH ×3 (09:00→18:23)
[2017-12-11] MEDS ORDERED: ceFAZolin INJ 1,000 MG VIAL ONE (09:28)
[2017-12-11] MEDS ORDERED: GENTAMICIN SULFATE 80 MG/2 ML VIAL ONE (09:28)
[2017-12-11] MEDS ORDERED: TOBRAMYCIN 1200 MG VIAL (for ortho/sterile core) OTHER ONE (09:37)
[2017-12-11] MEDS ORDERED: ACETAMINOPHEN 1000 MG/100 ML 100 ML IV ONE (09:53)
[2017-12-11] MEDS: VANCOMYCIN INJ 1,250 MG in SODIUM CHLOR 0.9% 250 ML INJ 250 ML IV SCH (10:00)
[2017-12-11] MEDS ORDERED: VANCOMYCIN HCL 1000 MG VIAL ONE (10:35)
--- NOTE | 2017-12-11 11:08 | PD.OP ---
cc: Philip Abdullahi MD Operative Report Date of Surgery: Dec 11, 2017 Preoperative Diagnosis: Probable left femur infection Postoperative Diagnosis: Left thigh and femur infection Procedure: Irrigation and debridement of left femur, placement of antibiotic spacer Anesthesia: General Surgeon: Philip Abdullahi Fabric Stretcher(s): Ayo Muhammad PA-C The surgical procedure was assisted by my physician property assistant. My P.A. presence was necessary throughout this case for the manipulation and positioning of the surgical extremity. My P.A. was assisting me throughout the duration of this procedure. The skill set of a physician property assistant was medically necessary to complete this procedure. During the surgical case the operating room surgical technologist was working at the back table and the physician property assistant was directly assisting me. Operation and Findings: Jay is well-known to me from previous left femur fractures. He presented back to the emergency room with increasing pain and swelling. Informed consent was obtained preoperatively. Operative site was marked. He was brought to operating room. He was given IV sedation and general anesthesia. Patient is already on scheduled antibiotics. Left leg was prepped with alcohol followed Hibiclens and draped in usual sterile fashion. Timeout procedure was performed. Procedure began with irrigation and debridement of the left thigh and femur. A 4 inch incision was made through previous scar. The incision was made through the traumatic wound. Muscular fascia was incised. The vastus medialis was elevated anteriorly. There was a small pocket of purulent fluid. This was obtained for cultures. The infection extended around the femur. Curettes and rongeurs were used to debride muscle and bone. Cortical fragments of bone were sent for specimen for cultures. A thorough debridement was performed along the fracture site. An excisional debridement was performed. Next the wound was thoroughly irrigated with pulsatile lavage. Next attention was turned towards to antibiotic beads. 10 cc of stimulant cement was mixed with 1 g of vancomycin and 1 g of tobramycin. Medium beads were made. Once the beads were set the beads were packed around the femur. Wound was now closed with 0 PDS, 3-0 PDS, and rashi. Sterile dressings were applied. Patient was awakened and transferred to recovery room in stable condition. Philip Abdullahi MD Dec 11, 2017 11:08
--- NOTE | 2017-12-11 11:34 | RADRPT ---
EXAM DATE/TIME: 12/11/2017 10:58 [facility] COMPARISON: FEMUR LEFT (1 VW), September 23, 2017, 7:34. INDICATIONS : I+D left femur. MEDICAL HISTORY : None. SURGICAL HISTORY : ORIF left femur. ENCOUNTER: Subsequent ACUITY: 3 days PAIN SCORE: Non-responsive. LOCATION: Left femur. FINDINGS: Single spot intraoperative fluoroscopic view of the left femur demonstrate a comminuted fracture of t he mid femur with intramedullary kaley hardware are seen, and numerous rounded radiodensities adjacent to the femoral shaft. CONCLUSION: Post surgical changes. Nikhil Moore MD on December 11, 2017 at 11:31 Board Certified Radiologist. This report was verified electronically.
[2017-12-11] MEDS ORDERED: MIDAZOLAM HCL 2 MG/2 ML VIAL ONE (11:35)
[2017-12-11] MEDS ORDERED: MORPHINE SULFATE 4 MG/ML INJ ONE (11:35)
[2017-12-11] MEDS ORDERED: *morphine SULFATE 4 MG/ML PERIprocedure ONLY ONE (11:47)
[2017-12-11] MEDS: LACTATED RINGER'S 1000 ML INJ 1,000 ML IV SCH ×2 (11:50→21:21)
[2017-12-11] MEDS ORDERED: LIDOCAINE HCL 1% PF 5 ML SYRINGE OTHER ONE (12:00)
[2017-12-11] MEDS ORDERED: DEXAMETHASONE SOD PHOS 4 MG/ML VIAL IV ONE (12:00)
[2017-12-11] MEDS ORDERED: ONDANSETRON HCL 4 MG/2 ML VIAL IV ONE (12:00)
[2017-12-11] MEDS ORDERED: LACTATED RINGER'S 1000 ML INJ 1,000 ML IV ONE (12:00)
[2017-12-11] MEDS ORDERED: PROPOFOL 200 MG/20 ML AMP IV ONE (12:00)
[2017-12-11 14:39] LABS: CREATININE 1.07 MG/DL (0.60-1.30)
--- NOTE | 2017-12-11 15:06 | HHI.PR ---
Subjective Remarks Patient seen postoperatively. He reports he is doing okay. Pain is controlled. Objective Vitals Vital Signs Date Time Temp Pulse Resp B/P (MAP) Pulse Ox O2 Delivery O2 Flow Rate FiO2 12/11/17 12:15 97.9 94 18 131/74 (93) 100 12/11/17 11:45 96 17 131/72 (91) 99 Room Air 12/11/17 11:30 93 12 126/69 (88) 99 Room Air 12/11/17 11:19 98.7 91 12 112/55 (74) 99 Nasal Cannula 4 12/11/17 07:59 99.2 108 18 98/62 (74) 99 12/11/17 05:33 100.4 12/11/17 04:00 98.6 107 18 118/ 12/11/17 04:00 101 12/11/17 00:16 98.4 111 20 108/55 (72) 98 12/11/17 00:00 114 12/10/17 21:00 113 12/10/17 20:00 102.8 110 18 127/75 (92) 98 12/10/17 16:00 100.0 108 20 117/60 (79) 98 I/O 12/10/17 12/10/17 12/10/17 12/11/17 12/11/17 12/11/17 07:00 15:00 23:00 07:00 15:00 23:00 Intake Total 1672 ml 1000 ml 350 ml 2000 ml Output Total 1800 ml 25 ml Balance 1672 ml 1000 ml -1450 ml 1975 ml Intake IV Total 1672 ml 1000 ml 350 ml 700 ml Other 1300 ml Output Urine Total 1800 ml Estimated Blood Loss 25 ml # Voids 3 Result Diagram: 12/10/17 0654 12/11/17 1400 Objective Remarks GENERAL: This is a well-nourished, well-developed patient, in no apparent distress. CARDIOVASCULAR: Normal rate and regular rhythm without murmurs, gallops, or rubs. RESPIRATORY: Good respiratory efforts. Breath sounds equal and clear to auscultation bilaterally. GASTROINTESTINAL: Abdomen soft, non-tender, non-distended. Normal active bowel sounds MUSCULOSKELETAL: Left thigh is wrapped. Neurovascularly intact distally at the foot. NEURO: Alert & Oriented x4 to person, place, time, situation. Moves all ext x4 PSYCH: Appropriate mood and affect. Procedures Irrigation and debridement of left femur, placement of antibiotic spacer A/P Assessment and Plan 27-year-old male with: Left thigh with increasing swelling and pain: History left femur fracture status post ORIF in September 2016. Probable left femur infection. -Imaging does not show any area of abscess, no DVT. However he has fevers, elevated acute phase reactants. History of IV drug use. - We will continue treating with empiric antibiotics including vancomycin and Zosyn. Follow blood cultures - Orthopedic surgery following. Patient underwent irrigation and debridement of left femur, placement of antibiotic spacer - Consult infectious disease to assist with antibiotics management- DVT prophylaxis with Lovenox. Margarette Choudhary MD Dec 11, 2017 15:06
[2017-12-11] MEDS: MORPHINE SULFATE 4 MG/ML INJ IV PUSH PRN ×2 (18:23→23:10)
--- NOTE | 2017-12-11 19:10 | ECHRPT ---
Indication: R/O ENDOCARDITIS CONCLUSIONS Normal left ventricular size. Wall thickness is normal. The left ventricular systolic function is normal with an estimated ejection fraction in the range of 55-60%. There is trace tricuspid valve regurgitation. The estimated pulmonary arterial pressure is 28.3 mmHg. BP: 132 / 62 HR: 110 Rhythm: Sinus MEASUREMENTS (Male / Female) Normal Values Technical Quality:Fair 2D ECHO LV Diastolic Diameter PLAX 5.3 cm 4.2 - 5.9 / 3.9 - 5.3 cm LV Systolic Diameter PLAX 3.9 cm IVS Diastolic Thickness 0.8 cm 0.6 - 1.0 / 0.6 - 0.9 cm LVPW Diastolic Thickness 0.8 cm 0.6 - 1.0 / 0.6 - 0.9 cm LV Relative Wall Thickness 0.3 RV Internal Dim ED PLAX 2.7 cm LVOT Diameter 2.2 cm Aortic Root Diameter 3.3 cm LA Systolic Diameter LX 2.5 cm 3.0 - 4.0 / 2.7 - 3.8 cm M-MODE AV Cusp Separation MM 2.0 cm DOPPLER AV Peak Velocity 142.0 cm/s AV Peak Gradient 8.1 mmHg AV Mean Gradient 4.0 mmHg AV Velocity Time Integral 21.1 cm LVOT Peak Velocity 105.0 cm/s LVOT Peak Gradient 4.4 mmHg LVOT Velocity Time Integral 15.6 cm AV Area Cont Eq vti 2.8 cm AV Area Cont Eq pk 2.8 cm Mitral E Point Velocity 80.0 cm/s Mitral A Point Velocity 31.1 cm/s Mitral E to A Ratio 2.6 LV E' Lateral Velocity 15.4 cm/s Mitral E to LV E' Lateral Ratio 5.2 LV E' Septal Velocity 10.0 cm/s Mitral E to LV E' Septal Ratio 8.0 TR Peak Velocity 214.0 cm/s TR Peak Gradient 18.3 mmHg Right Atrial Pressure 10.0 mmHg Pulmonary Artery Systolic Pressu 28.3 mmHg Right Ventricular Systolic Press 28.3 mmHg PV Peak Velocity 75.9 cm/s PV Peak Gradient 2.3 mmHg FINDINGS LEFT VENTRICLE Normal left ventricular size. Wall thickness is normal. The left ventricular systolic function is normal with an estimated ejection fraction in the range of 55-60%. RIGHT VENTRICLE Normal right ventricular size and systolic function. LEFT ATRIUM The left atrial size is normal. RIGHT ATRIUM The right atrial size is normal. ATRIAL SEPTUM No atrial level shunt is demonstrated by color flow Doppler interrogation. AORTA The aortic root and proximal ascending aorta are normal in size on limited imaging. MITRAL VALVE Structurally normal mitral valve. No mitral valve stenosis or regurgitation. AORTIC VALVE Trileaflet aortic valve. No aortic valve stenosis or regurgitation. TRICUSPID VALVE There is trace tricuspid valve regurgitation. The estimated pulmonary arterial pressure is 28.3 mmHg. PULMONARY VALVE No pulmonary valve regurgitation or stenosis. VESSELS The inferior vena cava is normal in size. PERICARDIUM No pericardial effusion. Derrek Miles MD, FACC, [facility] (Electronically Signed) Final Date:11 December 2017 19:09
[2017-12-11] MEDS: QUEtiapine FUMARATE 300 MG TAB PO SCH (21:20)
[2017-12-11] MEDS: VANCOMYCIN 1,500 MG/NS 500 ML IV SCH ×2 (21:20)
[2017-12-11] MEDS: ACETAMINOPHEN/HYDROcodone 325 MG/7.5 MG TAB PO PRN (21:21)
[2017-12-12] VITALS (9 sets, daily range): BP systolic 95–118; BP diastolic 53–62; PULSE 76–105; RESP 16–21; TEMP 97.3–98.1; O2SAT 96–100
[2017-12-12] MEDS: PIPERACIL-TAZO 4.5 GM PREMIX 100 ML IV SCH ×3 (00:21→13:42)
[2017-12-12] MEDS: ACETAMINOPHEN/HYDROcodone 325 MG/7.5 MG TAB PO PRN ×5 (05:12→21:35)
[2017-12-12] MEDS: LACTATED RINGER'S 1000 ML INJ 1,000 ML IV SCH ×2 (06:08→17:03)
[2017-12-12 06:39] LABS: CREATININE 0.9 MG/DL (0.60-1.30)
[2017-12-12] MEDS: MORPHINE SULFATE 4 MG/ML INJ IV PUSH PRN ×5 (06:42→23:41)
--- NOTE | 2017-12-12 07:36 | PD.ORT.PN ---
Subjective Subjective Remarks Jay is comfortable. Pain improving. Status post left thigh and femur irrigation debridement Objective Vitals Vital Signs Date Time Temp Pulse Resp B/P (MAP) Pulse Ox O2 Delivery O2 Flow Rate FiO2 12/12/17 04:00 89 12/12/17 04:00 98.1 79 20 118/57 (77) 98 12/12/17 00:07 98 12/12/17 00:00 98.0 105 21 109/53 (71) 96 12/11/17 20:00 98 12/11/17 20:00 98.3 97 21 126/64 (84) 99 12/11/17 18:32 18 12/11/17 17:51 18 12/11/17 15:40 98.2 75 19 123/70 (87) 100 12/11/17 14:56 18 12/11/17 12:15 97.9 94 18 131/74 (93) 100 12/11/17 11:45 96 17 131/72 (91) 99 Room Air 12/11/17 11:30 93 12 126/69 (88) 99 Room Air 12/11/17 11:19 98.7 91 12 112/55 (74) 99 Nasal Cannula 4 12/11/17 07:59 99.2 108 18 98/62 (74) 99 I/O 12/11/17 12/11/17 12/11/17 12/12/17 12/12/17 12/12/17 07:00 15:00 23:00 07:00 15:00 23:00 Intake Total 350 ml 2000 ml 2460 ml Output Total 1800 ml 25 ml 900 ml Balance -1450 ml 1975 ml 1560 ml Intake Oral 1860 ml IV Total 350 ml 700 ml 600 ml Other 1300 ml Output Urine Total 1800 ml 900 ml Estimated Blood Loss 25 ml # Voids 3 Result Diagram: 12/10/17 0654 12/12/17 0500 Imaging Last 24 hours Impressions Femur X-Ray 12/09/17 1052 Signed Impressions: Service Date/Time: November 11:08 - CONCLUSION: Healing fracture midshaft left femur with IM nail in good position. Xavier Rodríguez MD Objective Remarks Left lower extremity: Clean dry dressing in place. Mild to moderate thigh swelling. Thigh and calf compartments are soft. no pain to palpation below the knee, and no joint effusion. Distally intact sensation with active dorsiflexion and plantarflexion of foot Assessment & Plan Assessment and Plan Left severely comminuted open femur with intramedullary kaley fixation--postop day #1 status post irrigation and debridement with placement of antibiotic beads Infectious disease consult for IV antibiotics Physical therapy--weight-bear as tolerated Philip Stuart MD Dec 12, 2017 07:36
[2017-12-12] MEDS: SODIUM CHLORIDE 0.9% FLUSH 10 ML FLUSH IV FLUSH SCH ×2 (09:21→21:35)
[2017-12-12] MEDS: MULTIVITAMIN TAB PO SCH (09:21)
[2017-12-12] MEDS: FOLIC ACID 1 MG TAB PO SCH (09:21)
[2017-12-12] MEDS: CALCIUM/VITAMIN D 250 MG/125 U TAB PO SCH ×3 (09:21→17:38)
[2017-12-12] MEDS: VANCOMYCIN 1,500 MG/NS 500 ML IV SCH ×4 (10:27→17:38)
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
[2017-12-12] MEDS: QUEtiapine FUMARATE 300 MG TAB PO SCH (21:35)
[2017-12-13] VITALS (9 sets, daily range): BP systolic 105–129; BP diastolic 54–78; PULSE 84–103; RESP 18–20; TEMP 97.6–98.8; O2SAT 98–100
[2017-12-13] MEDS: ACETAMINOPHEN/HYDROcodone 325 MG/7.5 MG TAB PO PRN ×6 (02:26→19:48)
[2017-12-13] MEDS: VANCOMYCIN 1,500 MG/NS 500 ML IV SCH ×8 (02:26→21:18)
[2017-12-13] MEDS: LACTATED RINGER'S 1000 ML INJ 1,000 ML IV SCH ×3 (02:27→23:18)
[2017-12-13] MEDS: MORPHINE SULFATE 4 MG/ML INJ IV PUSH PRN ×5 (03:45→21:20)
[2017-12-13] MEDS: MULTIVITAMIN TAB PO SCH (08:28)
[2017-12-13] MEDS: CALCIUM/VITAMIN D 250 MG/125 U TAB PO SCH ×3 (08:28→18:06)
[2017-12-13] MEDS: FOLIC ACID 1 MG TAB PO SCH (08:28)
[2017-12-13] MEDS: SODIUM CHLORIDE 0.9% FLUSH 10 ML FLUSH IV FLUSH SCH ×2 (09:00→21:19)
[2017-12-13] MEDS ORDERED: PHARMACY ORDERED LAB ONE (09:45)
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
[2017-12-13] MEDS: QUEtiapine FUMARATE 300 MG TAB PO SCH (21:19)
[2017-12-14] VITALS (8 sets, daily range): BP systolic 104–131; BP diastolic 55–74; PULSE 85–122; RESP 18–20; TEMP 97.5–99.1; O2SAT 97–100
[2017-12-14] MEDS: VANCOMYCIN 1,500 MG/NS 500 ML IV SCH ×6 (03:35→20:37)
[2017-12-14] MEDS: ACETAMINOPHEN/HYDROcodone 325 MG/7.5 MG TAB PO PRN (06:00)
--- NOTE | 2017-12-14 07:18 | PD.ORT.PN ---
Subjective Subjective Remarks s/p I&D left femur doing well. pain controlled. reoprts improving. nurse reports that has lost IV access Objective Vitals Vital Signs Date Time Temp Pulse Resp B/P (MAP) Pulse Ox O2 Delivery O2 Flow Rate FiO2 12/14/17 00:00 98.5 122 18 106/55 (72) 97 12/13/17 23:53 103 12/13/17 20:00 98.8 103 18 127/72 (90) 100 12/13/17 16:00 97.9 97 18 129/78 (95) 99 12/13/17 12:00 98.4 92 18 117/70 (86) 98 12/13/17 08:26 98.0 88 18 127/77 (94) 98 I/O 12/13/17 12/13/17 12/13/17 12/14/17 12/14/17 12/14/17 07:00 15:00 23:00 07:00 15:00 23:00 Output Total 500 ml Balance -500 ml Stool Total 500 ml Result Diagram: 12/10/17 0654 12/12/17 0500 Imaging Last 24 hours Impressions Femur X-Ray 12/09/17 1052 Signed Impressions: Service Date/Time: November 11:08 - CONCLUSION: Healing fracture midshaft left femur with IM nail in good position. Xavier Rodríguez MD Objective Remarks Left lower extremity: Clean dry dressing in place. Mild to moderate thigh swelling. Thigh and calf compartments are soft. no pain to palpation below the knee, and no joint effusion. Distally intact sensation with active dorsiflexion and plantarflexion of foot Assessment & Plan Assessment and Plan Left severely comminuted open femur with intramedullary kaley fixation--postop day #3 status post irrigation and debridement with placement of antibiotic beads Infectious disease consult for IV antibiotics Physical therapy--weight-bear as tolerated daily dressing changes will require 6-8wks of IV Abx infectious dz for picc line placement Poncho Merida/First Matthew LEMOS December 14, 2017 07:18
[2017-12-14 08:18] LABS: CREATININE 0.78 MG/DL (0.60-1.30)
[2017-12-14] MEDS: LACTATED RINGER'S 1000 ML INJ 1,000 ML IV SCH ×2 (09:03→19:03)
[2017-12-14] MEDS: FOLIC ACID 1 MG TAB PO SCH (09:21)
[2017-12-14] MEDS: CALCIUM/VITAMIN D 250 MG/125 U TAB PO SCH ×3 (09:21→17:29)
[2017-12-14] MEDS: MULTIVITAMIN TAB PO SCH (09:21)
[2017-12-14] MEDS: SODIUM CHLORIDE 0.9% FLUSH 10 ML FLUSH IV FLUSH SCH ×2 (09:22→21:00)
[2017-12-14] MEDS: MORPHINE SULFATE 4 MG/ML INJ IV PUSH PRN ×3 (09:57→20:38)
[2017-12-14] MEDS: ACETAMINOPHEN/HYDROcodone 325 MG/10 MG TAB PO PRN ×3 (12:38→21:42)
--- NOTE | 2017-12-14 13:30 | HHI.IDPN ---
Subjective Subjective Remarks pt is c/o having drenching sweats x 2 days no fever Antibiotics vancomycin Allergies: Coded Allergies: No Known Allergies (Verified Allergy, Unknown, 12/09/17) Objective . Vital Signs Date Time Temp Pulse Resp B/P (MAP) Pulse Ox O2 Delivery O2 Flow Rate FiO2 12/14/17 08:00 99.1 85 18 122/74 (90) 100 12/14/17 04:00 98.2 109 18 104/62 (76) 99 12/14/17 03:40 111 12/14/17 00:00 98.5 122 18 106/55 (72) 97 12/13/17 23:53 103 12/13/17 20:00 98.8 103 18 127/72 (90) 100 12/13/17 19:49 98 12/13/17 16:00 97.9 97 18 129/78 (95) 99 12/14/17 12/14/17 12/15/17 15:00 23:00 07:00 # Voids 4 . Laboratory Tests Test 12/14/17 05:55 Creatinine 0.78 MG/DL Estimat Glomerular Filtration Rate 145 ML/MIN Imaging Last Impressions Femur X-Ray 12/11/17 0000 Signed Impressions: Service Date/Time: Monday, December 11, 2017 10:58 - CONCLUSION: Post surgical changes. Nikhil Moore MD Lower Extremity Ultrasound 12/09/17 0000 Signed Impressions: Service Date/Time: November 18:25 - CONCLUSION: Negative study. No venous thrombosis of the left lower extremity. Jorje Monroy MD Lower Extremity CT 12/09/17 0000 Signed Impressions: Service Date/Time: November 12:04 - CONCLUSION: 1. The previously noted to lead density collections along the anterior mid femur are no longer visualized. There is no distinct abscess identified. 2. Healing fracture deformity of the mid femur status post open rigid internal fixation with interval increase in surrounding reactive bone and callus. Pavan Sy MD Chest X-Ray 12/09/17 0000 Signed Impressions: Service Date/Time: November 17:09 - CONCLUSION: Normal examination. Xavier Rodríguez MD Physical Exam CONSTITUTIONAL/GENERAL: This is an adequately nourished patient, in no apparent distress. TUBES/LINES/DRAINS: SKIN: diaphoretic. NO rash CARDIOVASCULAR: Regular rate and rhythm without murmurs, gallops, or rubs. No JVD. Peripheral pulses symmetric. RESPIRATORY/CHEST: Symmetric, unlabored respirations. Clear to auscultation. Breath sounds equal bilaterally. No wheezes, rales, or rhonchi. GASTROINTESTINAL: Abdomen soft, non-tender, nondistended. No hepato-splenomegaly , or palpable masses. No guarding. Bowel sounds present. GENITOURINARY: Without palpable bladder distension. Baltazar catheter in place. MUSCULOSKELETAL: Extremities without clubbing, cyanosis, or edema BUE, RLE STATUS LOCALIS: well approximated L thigh incision, rashi in place + L knee effusion neasrly resolved L LE minimally edematous, not tender to palpation NEUROLOGICAL: Awake and alert. Motor and sensory grossly within normal limits. Follows commands. Cognitively sharp. Moves all extremities. PSYCHIATRIC: No obvious anxiety/depression. no apparent hallucinations or other psychotic thought process. Assessment & Plan Remarks Infected L thigh ORIF, MRSA Diaphoresis chk blood clx with fever rechk CBC cont vancomycin dw Dr Espinoza - he advised that hardware should be kept for now - remove hardware once union is achieved, themnw il Rx with addition al 6 weeks of abx Pt will need IV abx to be arranged prior to discharge (vancomycin, televancin or daptomycin) Jodi Miles MD December 14, 2017 13:30
--- NOTE | 2017-12-14 13:32 | HHI.FF ---
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 [] May leave port accessed during therapy. [] May leave peripheral site accessed for duration of therapy. [x] If patient has SOB or respiratory distress, check oxygen saturation. If less than 90% or clinical signs of respiratory distress, administer oxygen at 2 L/min. via nasal cannula and notify physician. [x] Anaphylaxis/Reaction orders: * Stop infusion. * Keep IV line open with saline flush. * Notify physician. * Monitor vital signs every 15 minutes until symptoms resolve. * Check Oxygen saturation; Oxygen at 2 L/min. via nasal cannula if less than 90% or clinical signs of respiratory distress. * Administer diphenhydramine (Benadryl) 25 mg IV STAT, (unless patient has received as pre-med). May repeat once, if necessary. * Solu-Cortef 250 mg IVP over 30-60 seconds, use 100 mg vials for each dissolution. * Epinephrine (1mg/1 ml) 0.3 mg subcutaneously or IVP now with any signs of respiratory distress. * Check with physician for new additional pre-med orders if patient is re- challenged or re-treated. [x] May remove PICC line when treatment complete, after confirming with Physician. [x] If the patient is admitted to the hospital, the ED, or transferred via [facility] , complete transfer form including medication reconciliation order sheet. Laboratory Tests Weekly Labs: BMP, Creatinine, SED Rate Jodi Miles MD December 14, 2017 13:32
--- NOTE | 2017-12-14 18:42 | HHI.PR ---
Subjective Remarks Patient complains that his left leg is still very swollen. He still has night sweats. No other complaints today. Objective Vital Signs Date Time Temp Pulse Resp B/P (MAP) Pulse Ox O2 Delivery O2 Flow Rate FiO2 12/14/17 12:00 97.8 95 18 116/69 (85) 100 12/14/17 08:00 99.1 85 18 122/74 (90) 100 12/14/17 04:00 98.2 109 18 104/62 (76) 99 12/14/17 03:40 111 12/14/17 00:00 98.5 122 18 106/55 (72) 97 12/13/17 23:53 103 12/13/17 20:00 98.8 103 18 127/72 (90) 100 12/13/17 19:49 98 I/O 12/13/17 12/13/17 12/13/17 12/14/17 12/14/17 12/14/17 07:00 15:00 23:00 07:00 15:00 23:00 Output Total 500 ml 1500 ml Balance -500 ml -1500 ml Output Urine Total 1500 ml Stool Total 500 ml # Voids 4 Result Diagram: 12/10/17 0654 12/14/17 0555 Imaging Last Impressions Femur X-Ray 12/11/17 0000 Signed Impressions: Service Date/Time: Monday, December 11, 2017 10:58 - CONCLUSION: Post surgical changes. Nikhil Moore MD Lower Extremity Ultrasound 12/09/17 0000 Signed Impressions: Service Date/Time: November 18:25 - CONCLUSION: Negative study. No venous thrombosis of the left lower extremity. Jorje Monroy MD Lower Extremity CT 12/09/17 0000 Signed Impressions: Service Date/Time: November 12:04 - CONCLUSION: 1. The previously noted to lead density collections along the anterior mid femur are no longer visualized. There is no distinct abscess identified. 2. Healing fracture deformity of the mid femur status post open rigid internal fixation with interval increase in surrounding reactive bone and callus. Pavan Sy MD Chest X-Ray 12/09/17 0000 Signed Impressions: Service Date/Time: November 17:09 - CONCLUSION: Normal examination. Xavier Rodríguez MD Objective Remarks GENERAL: NAD, A&Ox3 HEAD: Normocephalic. NECK: Supple, trachea midline. No lymphadenopathy. EYES: No scleral icterus. No injection or drainage. CARDIOVASCULAR: Regular rate and rhythm without murmurs, gallops, or rubs. RESPIRATORY: Breath sounds equal bilaterally. No accessory muscle use. GASTROINTESTINAL: Abdomen soft, non-tender, nondistended. MUSCULOSKELETAL: No cyanosis, or edema. Left leg is inflamed and indurated. SKIN: Warm and dry. NEURO: No focal neurological deficitis. A/P Problem List: (1) Left leg cellulitis ICD Code: L03.116 - Cellulitis of left lower limb Status: Acute (2) Leg fracture, left ICD Code: S82.92XA - Unspecified fracture of left lower leg, initial encounter for closed fracture Assessment and Plan 27-year-old male admitted secondary to left femur infection and left leg cellulitis. Left eye cellulitis Possible left femur osteomyelitis Antibiotic spacer present No evidence of abscess No DVT History of IV drug abuse Etiology likely related to IV drug abuse Orthopedic surgeons following Continue vancomycin ID following Prolonged IV antibiotics plan DVT prophylaxis Stephen Warner MD December 14, 2017 18:42
[2017-12-14] MEDS: QUEtiapine FUMARATE 300 MG TAB PO SCH (20:37)
[2017-12-15] VITALS (12 sets, daily range): BP systolic 99–140; BP diastolic 56–66; PULSE 82–107; RESP 16–20; TEMP 98–98.5; O2SAT 96–100
[2017-12-15] MEDS: VANCOMYCIN 1,500 MG/NS 500 ML IV SCH ×6 (03:33→20:45)
[2017-12-15] MEDS: LACTATED RINGER'S 1000 ML INJ 1,000 ML IV SCH ×2 (03:34→15:03)
[2017-12-15] MEDS: ACETAMINOPHEN/HYDROcodone 325 MG/10 MG TAB PO PRN ×4 (03:34→20:45)
[2017-12-15 05:26] LABS: AUTOMATED NEUTROPHIL # 7.8 TH/MM3 (1.8-7.7); BASOPHIL % 0.5 % (0.0-2.0); EOSINOPHIL # 0.3 TH/MM3 (0-0.4); EOSINOPHIL % 2.9 % (0.0-4.0); HEMATOCRIT 29.6 % (39.0-51.0); HEMOGLOBIN 9.7 GM/DL (13.0-17.0); LYMPHOCYTE # 1.7 TH/MM3 (1.0-4.8); MEAN CELL VOLUME 83.6 FL (80.0-100.0); MEAN CORPUSCULAR HEMOGLOBIN 27.4 PG (27.0-34.0); MEAN CORPUSCULAR HGB CONC 32.7 % (32.0-36.0); MEAN PLATELET VOLUME 7.2 FL (7.0-11.0); MONO % 8.7 % (0.0-8.0); MONOCYTE # 0.9 TH/MM3 (0-0.9); NEUT % 71.9 % (16.0-70.0); PLATELET COUNT 615 TH/MM3 (150-450); RED BLOOD COUNT 3.54 MIL/MM3 (4.50-5.90); RED CELL DISTRIBUTION WIDTH 18.7 % (11.6-17.2); WHITE BLOOD COUNT 10.8 TH/MM3 (4.0-11.0)
[2017-12-15 05:50] LABS: BICARBONATE 28.3 MEQ/L (21.0-32.0); CALCIUM 8.5 MG/DL (8.5-10.1); CREATININE 0.8 MG/DL (0.60-1.30)
[2017-12-15] MEDS: SODIUM CHLORIDE 0.9% FLUSH 10 ML FLUSH IV FLUSH SCH ×2 (08:23→20:45)
[2017-12-15] MEDS: CALCIUM/VITAMIN D 250 MG/125 U TAB PO SCH ×3 (08:23→16:55)
[2017-12-15] MEDS: MULTIVITAMIN TAB PO SCH (08:23)
[2017-12-15] MEDS: FOLIC ACID 1 MG TAB PO SCH (08:23)
[2017-12-15] MEDS: MORPHINE SULFATE 4 MG/ML INJ IV PUSH PRN ×4 (08:24→22:59)
[2017-12-15] MEDS ORDERED: PHARMACY ORDERED LAB ONE (11:45)
--- NOTE | 2017-12-15 15:42 | HHI.PR ---
Subjective Remarks Significant change in left leg swelling. Night sweats are still present. He says his night sweats and chills have improved compared to time of admit. Objective Vital Signs Date Time Temp Pulse Resp B/P (MAP) Pulse Ox O2 Delivery O2 Flow Rate FiO2 12/15/17 12:07 98.4 101 20 116/66 (83) 100 12/15/17 08:23 98.2 82 20 117/59 (78) 100 12/15/17 04:00 98.2 102 19 122/61 (81) 98 12/15/17 01:35 106 12/15/17 00:00 98.1 107 18 99/58 (72) 98 12/14/17 20:06 92 12/14/17 20:00 97.5 99 20 125/72 (89) 98 12/14/17 16:00 97.8 89 18 131/71 (91) 100 I/O 12/14/17 12/14/17 12/14/17 12/15/17 12/15/17 12/15/17 07:00 15:00 23:00 07:00 15:00 23:00 Output Total 1500 ml 1300 ml 650 ml Balance -1500 ml -1300 ml -650 ml Output Urine Total 1500 ml 1300 ml 650 ml # Voids 4 # Bowel Movements 0 0 Result Diagram: 12/15/17 0359 12/15/17 0359 Objective Remarks GENERAL: NAD, A&Ox3 HEAD: Normocephalic. NECK: Supple, trachea midline. No lymphadenopathy. EYES: No scleral icterus. No injection or drainage. CARDIOVASCULAR: Regular rate and rhythm without murmurs, gallops, or rubs. RESPIRATORY: Breath sounds equal bilaterally. No accessory muscle use. GASTROINTESTINAL: Abdomen soft, non-tender, nondistended. MUSCULOSKELETAL: No cyanosis, or edema. Left leg is inflamed and indurated. SKIN: Warm and dry. NEURO: No focal neurological deficitis. A/P Problem List: (1) Left leg cellulitis ICD Code: L03.116 - Cellulitis of left lower limb Status: Acute (2) Leg fracture, left ICD Code: S82.92XA - Unspecified fracture of left lower leg, initial encounter for closed fracture Assessment and Plan 27-year-old male admitted secondary to left femur infection and left leg cellulitis. No significant change from previous day. Continue IV antibiotics. Continue monitoring clinical findings. Left eye cellulitis Possible left femur osteomyelitis Antibiotic spacer present No evidence of abscess No DVT History of IV drug abuse Etiology likely related to IV drug abuse Orthopedic surgeons following Continue vancomycin ID following Prolonged IV antibiotics plan DVT prophylaxis Stephen Warner MD December 15, 2017 15:42
[2017-12-15] MEDS: QUEtiapine FUMARATE 300 MG TAB PO SCH (20:45)
[2017-12-16] VITALS (8 sets, daily range): BP systolic 119–127; BP diastolic 62–71; PULSE 79–115; RESP 16–18; TEMP 97.9–98.5; O2SAT 97–100
[2017-12-16] MEDS: LACTATED RINGER'S 1000 ML INJ 1,000 ML IV SCH ×2 (00:10→13:48)
[2017-12-16] MEDS: ACETAMINOPHEN/HYDROcodone 325 MG/10 MG TAB PO PRN ×5 (03:36→23:36)
[2017-12-16] MEDS: VANCOMYCIN 1,500 MG/NS 500 ML IV SCH ×6 (03:36→19:57)
[2017-12-16] MEDS: CALCIUM/VITAMIN D 250 MG/125 U TAB PO SCH ×3 (08:39→17:40)
[2017-12-16] MEDS: MULTIVITAMIN TAB PO SCH (08:39)
[2017-12-16] MEDS: FOLIC ACID 1 MG TAB PO SCH (08:39)
[2017-12-16] MEDS: MORPHINE SULFATE 4 MG/ML INJ IV PUSH PRN ×3 (08:42→18:44)
[2017-12-16] MEDS: SODIUM CHLORIDE 0.9% FLUSH 10 ML FLUSH IV FLUSH SCH ×2 (08:42→19:57)
[2017-12-16 10:24] LABS: CREATININE 0.71 MG/DL (0.60-1.30)
--- NOTE | 2017-12-16 15:34 | HHI.PR ---
Subjective Remarks Slow improvement in clinical symptoms. Planning for outpatient IV therapy. PICC line ordered. Objective Vital Signs Date Time Temp Pulse Resp B/P (MAP) Pulse Ox O2 Delivery O2 Flow Rate FiO2 12/16/17 12:00 98.0 90 18 119/66 (83) 100 12/16/17 08:00 98.0 79 18 127/64 (85) 99 12/16/17 03:38 97.9 97 16 121/71 (88) 98 12/16/17 00:09 102 12/15/17 23:07 98.1 107 16 108/56 (73) 96 12/15/17 20:42 98.0 97 16 140/64 (89) 99 12/15/17 20:05 92 12/15/17 16:14 98.5 93 20 118/57 (77) 100 12/15/17 16:00 90 I/O 12/15/17 12/15/17 12/15/17 12/16/17 12/16/17 12/16/17 07:00 15:00 23:00 07:00 15:00 23:00 Intake Total 1250 ml Output Total 650 ml 400 ml Balance 600 ml -400 ml IV Total 1250 ml Output Urine Total 650 ml 400 ml # Bowel Movements 0 Result Diagram: 12/15/17 0359 12/16/17 0735 Objective Remarks GENERAL: NAD, A&Ox3 HEAD: Normocephalic. NECK: Supple, trachea midline. No lymphadenopathy. EYES: No scleral icterus. No injection or drainage. CARDIOVASCULAR: Regular rate and rhythm without murmurs, gallops, or rubs. RESPIRATORY: Breath sounds equal bilaterally. No accessory muscle use. GASTROINTESTINAL: Abdomen soft, non-tender, nondistended. MUSCULOSKELETAL: No cyanosis, or edema. Left leg is inflamed and indurated. SKIN: Warm and dry. NEURO: No focal neurological deficitis. A/P Problem List: (1) Left leg cellulitis ICD Code: L03.116 - Cellulitis of left lower limb Status: Acute (2) Leg fracture, left ICD Code: S82.92XA - Unspecified fracture of left lower leg, initial encounter for closed fracture Assessment and Plan 27-year-old male admitted secondary to left femur infection and left leg cellulitis. PICC line ordered. Ongoing planning for outpatient IV therapy to continue at discharge. Patient may discharge in 1-2 days. Left eye cellulitis Possible left femur osteomyelitis Antibiotic spacer present No evidence of abscess No DVT History of IV drug abuse Etiology likely related to IV drug abuse Orthopedic surgeons following Continue vancomycin ID following Prolonged IV antibiotics plan DVT prophylaxis Stephen Warner MD December 16, 2017 15:34
[2017-12-16] MEDS ORDERED: SODIUM CHLORIDE 0.9% FLUSH 10 ML FLUSH IV FLUSH PRN (17:15)
[2017-12-16] MEDS: QUEtiapine FUMARATE 300 MG TAB PO SCH (19:57)
[2017-12-17] VITALS (7 sets, daily range): BP systolic 112–150; BP diastolic 61–78; PULSE 78–108; RESP 16–18; TEMP 97.6–98.5; O2SAT 99–100
[2017-12-17] MEDS: MORPHINE SULFATE 4 MG/ML INJ IV PUSH PRN ×4 (01:03→13:37)
[2017-12-17] MEDS ORDERED: PHARMACY ORDERED LAB ONE (03:45)
[2017-12-17] MEDS: ACETAMINOPHEN/HYDROcodone 325 MG/10 MG TAB PO PRN ×4 (04:33→20:52)
[2017-12-17] MEDS: VANCOMYCIN 1,500 MG/NS 500 ML IV SCH ×6 (05:27→20:52)
[2017-12-17] MEDS: MULTIVITAMIN TAB PO SCH (09:07)
[2017-12-17] MEDS: FOLIC ACID 1 MG TAB PO SCH (09:07)
[2017-12-17] MEDS: CALCIUM/VITAMIN D 250 MG/125 U TAB PO SCH ×3 (09:07→16:03)
[2017-12-17] MEDS: SODIUM CHLORIDE 0.9% FLUSH 10 ML FLUSH IV FLUSH SCH ×3 (09:08→20:53)
[2017-12-17] MEDS: LACTATED RINGER'S 1000 ML INJ 1,000 ML IV SCH ×2 (09:09→17:03)
--- NOTE | 2017-12-17 17:08 | HHI.PR ---
Subjective Remarks PICC line is in place. Outpatient IV antibiotics arranged. Patient has no housing or home of his own. Mother is willing to take this patient at her house in 2 days, currently she has no bed or couch at home, she also does not trust him to be at her house alone and works for the next 2 days. Alternative option was an outpatient hotel, no hotels available. Objective Vital Signs Date Time Temp Pulse Resp B/P (MAP) Pulse Ox O2 Delivery O2 Flow Rate FiO2 12/17/17 12:00 97.6 86 16 116/64 (81) 100 12/17/17 10:51 78 12/17/17 08:00 97.6 85 18 150/67 (94) 99 12/17/17 04:40 108 12/17/17 04:00 98.5 94 18 112/61 (78) 100 12/16/17 23:00 98.5 115 18 119/62 (81) 97 12/16/17 21:00 91 12/16/17 20:00 98.1 97 18 123/67 (85) 99 I/O 12/16/17 12/16/17 12/16/17 12/17/17 12/17/17 12/17/17 07:00 15:00 23:00 07:00 15:00 23:00 Output Total 700 ml 540 ml Balance -700 ml -540 ml Output Urine Total 700 ml 540 ml # Voids 4 # Bowel Movements 1 Result Diagram: 12/15/17 0359 12/16/17 0735 Objective Remarks GENERAL: NAD, A&Ox3 HEAD: Normocephalic. NECK: Supple, trachea midline. No lymphadenopathy. EYES: No scleral icterus. No injection or drainage. CARDIOVASCULAR: Regular rate and rhythm without murmurs, gallops, or rubs. RESPIRATORY: Breath sounds equal bilaterally. No accessory muscle use. GASTROINTESTINAL: Abdomen soft, non-tender, nondistended. MUSCULOSKELETAL: No cyanosis, or edema. Left leg is inflamed and indurated. SKIN: Warm and dry. NEURO: No focal neurological deficitis. A/P Problem List: (1) Left leg cellulitis ICD Code: L03.116 - Cellulitis of left lower limb Status: Acute (2) Leg fracture, left ICD Code: S82.92XA - Unspecified fracture of left lower leg, initial encounter for closed fracture Assessment and Plan 27-year-old male admitted secondary to left femur infection and left leg cellulitis. Patient will be ready for discharge once outpatient arrangements for housing and transport are available. Current options are not available. Left eye cellulitis Possible left femur osteomyelitis Antibiotic spacer present No evidence of abscess No DVT History of IV drug abuse Etiology likely related to IV drug abuse Orthopedic surgeons following Continue vancomycin ID following Prolonged IV antibiotics plan DVT prophylaxis Stephen Warner MD December 17, 2017 17:08
[2017-12-17] MEDS: QUEtiapine FUMARATE 300 MG TAB PO SCH (20:49)
[2017-12-18] VITALS: BP 114/60; PULSE 105; PULSE 111; RESP 18; TEMP 98.8; O2SAT 98
[2017-12-18 04:00] VITALS: BP 108/58; PULSE 92; RESP 18; TEMP 98.2; O2SAT 97
[2017-12-18] MEDS: ACETAMINOPHEN/HYDROcodone 325 MG/10 MG TAB PO PRN ×5 (04:06→23:49)
[2017-12-18] MEDS: VANCOMYCIN 1,500 MG/NS 500 ML IV SCH ×6 (04:09→19:55)
[2017-12-18] MEDS: LACTATED RINGER'S 1000 ML INJ 1,000 ML IV SCH ×3 (04:09→22:38)
[2017-12-18 05:05] LABS: CREATININE 0.75 MG/DL (0.60-1.30)
[2017-12-18] MEDS: MORPHINE SULFATE 4 MG/ML INJ IV PUSH PRN ×3 (06:25→17:30)
[2017-12-18 08:00] VITALS: BP 126/78; PULSE 84; PULSE 96; RESP 18; TEMP 98; O2SAT 99
[2017-12-18] MEDS: FOLIC ACID 1 MG TAB PO SCH (09:38)
[2017-12-18] MEDS: MULTIVITAMIN TAB PO SCH (09:38)
[2017-12-18] MEDS: CALCIUM/VITAMIN D 250 MG/125 U TAB PO SCH ×3 (09:38→17:30)
[2017-12-18] MEDS: SODIUM CHLORIDE 0.9% FLUSH 10 ML FLUSH IV FLUSH SCH ×3 (09:39→21:00)
[2017-12-18 12:00] VITALS: BP 115/67; PULSE 89; RESP 18; TEMP 99.3; O2SAT 99
--- NOTE | 2017-12-18 15:14 | HHI.PR ---
Subjective Remarks Patient complains of lack of pain control today. No other complaints. No nausea or vomiting. No fevers overnight. Objective Vital Signs Date Time Temp Pulse Resp B/P (MAP) Pulse Ox O2 Delivery O2 Flow Rate FiO2 12/18/17 12:00 99.3 89 18 115/67 (83) 99 12/18/17 08:00 96 12/18/17 08:00 98.0 84 18 126/78 (94) 99 12/18/17 04:00 98.2 92 18 108/58 (75) 97 12/18/17 00:00 98.8 105 18 114/60 (78) 98 12/18/17 00:00 111 12/17/17 20:00 98 12/17/17 20:00 98.2 98 18 126/78 (94) 100 12/17/17 16:00 97.6 88 16 123/67 (85) 99 I/O 12/17/17 12/17/17 12/17/17 12/18/17 12/18/17 12/18/17 07:00 15:00 23:00 07:00 15:00 23:00 Output Total 540 ml Balance -540 ml Output Urine Total 540 ml # Voids 4 Result Diagram: 12/15/17 0359 12/18/17 0400 Objective Remarks GENERAL: NAD, A&Ox3 HEAD: Normocephalic. NECK: Supple, trachea midline. No lymphadenopathy. EYES: No scleral icterus. No injection or drainage. CARDIOVASCULAR: Regular rate and rhythm without murmurs, gallops, or rubs. RESPIRATORY: Breath sounds equal bilaterally. No accessory muscle use. GASTROINTESTINAL: Abdomen soft, non-tender, nondistended. MUSCULOSKELETAL: No cyanosis, or edema. Left leg is inflamed and indurated. SKIN: Warm and dry. NEURO: No focal neurological deficitis. A/P Problem List: (1) Left leg cellulitis ICD Code: L03.116 - Cellulitis of left lower limb Status: Acute (2) Leg fracture, left ICD Code: S82.92XA - Unspecified fracture of left lower leg, initial encounter for closed fracture Assessment and Plan 27-year-old male admitted secondary to left femur infection and left leg cellulitis. Add long-acting pain treatment. MS Contin 50 mg p.o. every 12 hours. [place] is ready at 10 mg. No increase in short-acting treatments. Left eye cellulitis Possible left femur osteomyelitis Antibiotic spacer present No evidence of abscess No DVT History of IV drug abuse Etiology likely related to IV drug abuse Orthopedic surgeons following Continue vancomycin ID following Prolonged IV antibiotics plan DVT prophylaxis Stephen Warner MD December 18, 2017 15:14
[2017-12-18] MEDS ORDERED: MORPHINE SULFATE 15 MG CONTROLLED RELEASE TAB PO ONE (15:15)
[2017-12-18 16:00] VITALS: BP 119/64; PULSE 100; RESP 18; TEMP 98.5; O2SAT 99
[2017-12-18] MEDS: QUEtiapine FUMARATE 300 MG TAB PO SCH (19:54)
[2017-12-18 20:00] VITALS: BP_SYST 106; BP_SYST 117; BP_DIAS 51; BP_DIAS 71; PULSE 91; PULSE 99; RESP 17; RESP 19; TEMP 97.8; TEMP 98; O2SAT 99
[2017-12-19] VITALS: BP 121/63; PULSE 95; RESP 16; TEMP 98.1; O2SAT 99
[2017-12-19] MEDS: MORPHINE SULFATE 4 MG/ML INJ IV PUSH PRN ×5 (02:20→22:47)
[2017-12-19] MEDS: VANCOMYCIN 1,500 MG/NS 500 ML IV SCH ×6 (02:20→20:11)
[2017-12-19] MEDS: ACETAMINOPHEN/HYDROcodone 325 MG/10 MG TAB PO PRN ×4 (06:20→21:49)
[2017-12-19 08:00] VITALS: BP 125/70; PULSE 79; RESP 18; TEMP 98; O2SAT 99
[2017-12-19] MEDS: LACTATED RINGER'S 1000 ML INJ 1,000 ML IV SCH ×2 (08:30→11:23)
[2017-12-19] MEDS: CALCIUM/VITAMIN D 250 MG/125 U TAB PO SCH ×4 (08:36→20:04)
[2017-12-19] MEDS: MULTIVITAMIN TAB PO SCH (08:36)
[2017-12-19] MEDS: FOLIC ACID 1 MG TAB PO SCH (08:36)
[2017-12-19] MEDS: MORPHINE SULFATE 15 MG CONTROLLED RELEASE TAB PO SCH ×2 (08:36→20:05)
[2017-12-19] MEDS: SODIUM CHLORIDE 0.9% FLUSH 10 ML FLUSH IV FLUSH SCH ×3 (08:38→20:11)
[2017-12-19 10:40] VITALS: PULSE 84
[2017-12-19 12:00] VITALS: BP 124/67; PULSE 86; RESP 18; O2SAT 99
[2017-12-19] MEDS ORDERED: DOCU100C15 PO (15:46)
[2017-12-19] MEDS ORDERED: MORP1TAB24 PO (15:46)
[2017-12-19] MEDS ORDERED: NORC5TAB PO (15:46)
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
[2017-12-19 16:00] VITALS: BP 107/56; PULSE 90; RESP 18; O2SAT 95
[2017-12-19 20:00] VITALS: BP 130/70; PULSE 95; RESP 18; TEMP 98.3; O2SAT 100
[2017-12-19] MEDS: QUEtiapine FUMARATE 300 MG TAB PO SCH (20:04)
[2017-12-20] VITALS: BP 119/59; PULSE 110; RESP 20; TEMP 97.3; O2SAT 99
[2017-12-20] MEDS ORDERED: PHARMACY ORDERED LAB ONE (03:45)
[2017-12-20] MEDS: ACETAMINOPHEN/HYDROcodone 325 MG/10 MG TAB PO PRN ×2 (03:56→08:04)
[2017-12-20] MEDS: VANCOMYCIN 1,500 MG/NS 500 ML IV SCH ×2 (04:33)
[2017-12-20 04:39] LABS: CREATININE 0.85 MG/DL (0.60-1.30)
[2017-12-20] MEDS: LACTATED RINGER'S 1000 ML INJ 1,000 ML IV SCH (05:03)
[2017-12-20 06:20] VITALS: BP 102/56; PULSE 102; RESP 18; TEMP 98.3; O2SAT 99
[2017-12-20 08:00] VITALS: BP 119/59; PULSE 90; RESP 16; TEMP 97.5; O2SAT 97
[2017-12-20] MEDS: MORPHINE SULFATE 15 MG CONTROLLED RELEASE TAB PO SCH (08:04)
[2017-12-20] MEDS: MULTIVITAMIN TAB PO SCH (08:05)
[2017-12-20] MEDS: FOLIC ACID 1 MG TAB PO SCH (08:05)
[2017-12-20] MEDS: SODIUM CHLORIDE 0.9% FLUSH 10 ML FLUSH IV FLUSH SCH ×2 (08:06→08:07)
--- NOTE | 2017-12-20 11:13 | HHI.PR ---
Subjective Remarks He wants to go home to the care of mother. Dw RN Objective Vitals Vital Signs Date Time Temp Pulse Resp B/P (MAP) Pulse Ox O2 Delivery O2 Flow Rate FiO2 12/20/17 08:00 97.5 90 16 119/59 (79) 97 12/20/17 06:20 98.3 102 18 102/56 (71) 99 12/20/17 00:00 97.3 110 20 119/59 (79) 99 12/19/17 20:00 98.3 95 18 130/70 (90) 100 12/19/17 16:00 90 18 107/56 (73) 95 12/19/17 12:00 86 18 124/67 (86) 99 I/O 12/19/17 12/19/17 12/19/17 12/20/17 12/20/17 12/20/17 07:00 15:00 23:00 07:00 15:00 23:00 Intake Total 480 ml 500 ml 521 ml Output Total 1 ml 975 ml 725 ml 1025 ml Balance 479 ml -475 ml -725 ml 521 ml -1025 ml Intake Oral 480 ml IV Total 500 ml 521 ml Output Urine Total 1 ml 975 ml 725 ml 1025 ml # Voids 1 Result Diagram: 12/20/17 0350 Imaging Last Impressions Femur X-Ray 12/11/17 0000 Signed Impressions: Service Date/Time: Monday, December 11, 2017 10:58 - CONCLUSION: Post surgical changes. Nikhil Moore MD Lower Extremity Ultrasound 12/09/17 0000 Signed Impressions: Service Date/Time: November 18:25 - CONCLUSION: Negative study. No venous thrombosis of the left lower extremity. Jorje Monroy MD Lower Extremity CT 12/09/17 0000 Signed Impressions: Service Date/Time: November 12:04 - CONCLUSION: 1. The previously noted to lead density collections along the anterior mid femur are no longer visualized. There is no distinct abscess identified. 2. Healing fracture deformity of the mid femur status post open rigid internal fixation with interval increase in surrounding reactive bone and callus. Pavan Sy MD Chest X-Ray 12/09/17 0000 Signed Impressions: Service Date/Time: November 17:09 - CONCLUSION: Normal examination. Xavier Rodríguez MD Objective Remarks GENERAL: NAD, A&Ox3 HEAD: Normocephalic. NECK: Supple, trachea midline. No lymphadenopathy. EYES: No scleral icterus. No injection or drainage. CARDIOVASCULAR: Regular rate and rhythm without murmurs, gallops, or rubs. RESPIRATORY: Breath sounds equal bilaterally. No accessory muscle use. GASTROINTESTINAL: Abdomen soft, non-tender, nondistended. MUSCULOSKELETAL: No cyanosis, or edema. Left thigh with dry dressing SKIN: Warm and dry. NEURO: No focal neurological deficits. Procedures Irrigation and debridement of left femur, placement of antibiotic spacer A/P Problem List: (1) Left leg cellulitis ICD Code: L03.116 - Cellulitis of left lower limb Status: Acute (2) Leg fracture, left ICD Code: S82.92XA - Unspecified fracture of left lower leg, initial encounter for closed fracture Assessment and Plan 27-year-old male admitted secondary to left femur infection and left leg cellulitis. Left thigh cellulitis Possible left femur osteomyelitis Antibiotic spacer present No evidence of abscess No DVT History of IV drug abuse Etiology likely related to IV drug abuse Orthopedic surgeons following Continue vancomycin ID following Prolonged IV antibiotics plan Pain mgt with MS Contin and Norcocounselled re narcotics DVT prophylaxis Lovenox Discharge Planning Stable for dc when IV abx set up Simeon Altamirano MD December 20, 2017 11:13
[2017-12-20] MEDS ORDERED: VANCOMYCIN INJ 1,250 MG in SODIUM CHLOR 0.9% 250 ML INJ 250 ML IV SCH (12:00)
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
[2017-12-21] MEDS ORDERED: PHARMACY ORDERED LAB ONE (11:45)
== END 2017-12-20 12:01 | disposition home or self-care (01) | DRG 857 ==
LOC: NEPC 09:53 → NEDA 15:08 → N05B 15:40
PROVIDERS: ADMIT Internal Medicine; ATTEND Internal Medicine
PROC: 3E0V329 Introduction of Other Anti-infective into Bones, Percutaneous Approach (ICD-10-PCS; 2017-12-11)
PROC: 0QB90ZZ Excision of Left Femoral Shaft, Open Approach (ICD-10-PCS; principal; 2017-12-11 10:00)
PROC: 02HV33Z Insertion of Infusion Device into Superior Vena Cava, Percutaneous Approach (ICD-10-PCS; 2017-12-16)
DX: T81.4XXA Infection following a procedure, initial encounter (principal); L03.116 Cellulitis of left lower limb; R70.0 Elevated erythrocyte sedimentation rate; R79.82 Elevated C-reactive protein (CRP); B95.62 Methicillin resistant Staphylococcus aureus infection as the cause of diseases classified elsewhere; F17.210 Nicotine dependence, cigarettes, uncomplicated; F19.10 Other psychoactive substance abuse, uncomplicated; F90.9 Attention-deficit hyperactivity disorder, unspecified type; Z91.5 Personal history of self-harm
CPT/HCPCS: 36569; 71045; 73551; 73552; 73701; 76000; 76937; 80048; 80053; 80202; 80307; 81001; 82565; 85025; 85652; 86140; 86403; 87015; 87040; 87070; 87102; 87116; 87147; 87186; 87205; 87206; 93306; 93971; 94150; 96361; 96365; 96375; C1713; J0131; J0690; J1100; J1580; J1642; J1885; J2250; J2270; J2405; J2543; J3010; J3370; J7030; J7040; J7050; J7120; Q9967

== ENCOUNTER 2018-01-21 21:23 | Emergency (ER) | payer SELFPAY ==
[~2018-01-21] VITALS: Ht 185.4 cm; Wt 75.0 kg
[~2018-01-21 21:23] MED LIST changes: -BACL10TA PO; +DOCU100C15 PO; -IBUP1TAB5 PO; +MORP1TAB24 PO; +NORC5TAB PO; -OXYC1TAB36 PO; -PANT40TA3 PO; -THIA100 PO; -WALKER/ADULT/FO1 MIS; -WHEEMIS3
[2018-01-21 21:30] VITALS: BP 138/82; PULSE 103; RESP 20; TEMP 97.5; O2SAT 96
[2018-01-21 22:41] VITALS: BP 120/73; PULSE 98; RESP 20; O2SAT 99
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
[2018-01-22 00:34] VITALS: BP 112/59; PULSE 96; RESP 18; O2SAT 98
[2018-01-22 01:39] VITALS: BP 105/59; PULSE 82; RESP 18; O2SAT 95
[2018-01-22 03:42] VITALS: BP 119/63; PULSE 90; RESP 18; O2SAT 95
[2018-01-22 05:43] VITALS: BP 121/66; PULSE 98; RESP 16; O2SAT 100
== END 2018-01-22 06:18 | disposition home or self-care (01) ==
LOC: NEPE 21:23
DX: T40.1X1A Poisoning by heroin, accidental (unintentional), initial encounter (principal)
CPT/HCPCS: 99282

== ENCOUNTER 2018-08-08 05:15 | Inpatient (IN) ==
[2018-08-08] MEDS ORDERED: Acetaminophen 325 MG Tablet PO ONE (05:39)
--- NOTE | 2018-08-08 06:15 | ED ---
HPI General Chief Complaint: Psychiatric Symptoms Stated Complaint: Psy/DBPD Time Seen by Provider: 08/08/18 05:24 Source: patient and police Mode of arrival: other (police) Limitations: no limitations History of Present Illness HPI Narrative: Patient presents to our facility under a Garcia act. Please report states that patient's mother called saying that patient was saying he was going to kill himself. Patient was placed under the Garcia act. Upon arrival to the facility patient states that he did not try to kill himself and is not trying to kill himself. Patient denies any plans or even saying that he verbalized this. Patient has no history of anxiety or depression. Patient does not have any medical problems that he knows of other than thigh pain from a fracture of his femur 10 months ago. Patient is refusing blood work. complaint: Reports suicidal ideation History of same: No Relieving factors: none Exacerbating factors: none Context: Denies recent alcohol abuse, recent drug abuse and not taking psychiatric medications Associated psychiatric symptoms: Reports none Associated symptoms: Reports denies other symptoms Treatments prior to arrival: Reports placed on mental health hold (garcia act) Related Data Home Medications Medication Instructions Recorded Confirmed No Known Home Medications 08/08/18 08/08/18 Allergies Allergy/AdvReac Type Severity Reaction Status Date / Time No Known Allergies Allergy Verified 08/08/18 05:20 Review of Systems ROS: all other systems reviewed are negative [facility] Medical History Medical History Patient denies medical problems (Acute) Recent surgical procedure on lower extremity (Acute) Social History Social History Substance History: Active Abuse Second Hand Smoke Exposure: No Smoking Status: Never smoker Tobacco Type: Cigarettes How Often Do You Have a Drink Containing Alcohol: Never Recent Travel in [place] within the Last 8 Weeks: No Recent Out of Country Travel within the Last 8 Weeks: No Immunization History Tetanus Immunization Year if Known: 2017 Exam Const General: anxious and other (Patient is agitated) Orientation: alert, awake and oriented x3 HENMT Head: normocephalic and atraumatic Nose: no nasal discharge and no epistaxis Mouth: moist mucous membranes Eyes Sclera: normal sclerae Pupils: PERRL Neck Neck: trachea midline and no JVD Resp Effort & Inspection: no use of accessory muscles Auscultation: clear to auscultation bilaterally Cardio Rate: regular rate Rhythm: regular rhythm Heart Sounds: no murmurs GI Inspection: non-distended Palpation: soft, no hepatosplenomegaly and nontender Skin General: dry skin (warm) and other (No signs of abrasions contusions or lacerations or any signs of self-harm) Neuro General: alert and awake Cranial Nerves: other Speech: speech normal Motor: no movement abnormalities noted Extrem General: normal to inspection, no clubbing, no cyanosis and no edema Psych Mood: congruent mood Affect: normal affect Judgment: judgment good Course Initial Documented Vital Signs Temperature 97.7 F 08/08/18 05:40 Pulse Rate 81 08/08/18 05:40 Respiratory Rate 16 08/08/18 05:40 Blood Pressure 138/80 08/08/18 05:40 Pulse Oximetry 100 08/08/18 05:40 Last Documented Vital Signs Temperature 98.4 F 08/08/18 11:02 Pulse Rate 83 08/08/18 18:08 Respiratory Rate 18 08/08/18 17:54 Blood Pressure 110/65 08/08/18 18:08 Pulse Oximetry 100 08/08/18 18:08 Medical Decision Making MDM Narrative Medical decision making narrative: Patient presents to our facility under a Garcia act. Please report states that patient's mother called saying that patient was saying he was going to kill himself by jumping in front of a train. Patient was placed under the Garcia act. Upon arrival to the facility patient states that he did not try to kill himself and is not trying to kill himself. Patient denies any plans or even saying that he verbalized this. Patient has no history of anxiety or depression. Patient does not have any medical problems that he knows of other than thigh pain from a fracture of his femur 10 months ago. Patient is refusing blood work. Patient has a temperature of 97.7 pulse rate of 81 blood pressure is 138/80 pulse ox is physical exam is unremarkable other than patient is agitated Patient is on a psychiatric hold We will not be doing blood work at this time. Patient's blood work from our facility 9 days ago is normal. patietn medically cleared Patient await psychiatric evaluation in the morning. Medical Screen Exam Complete: Yes Emergency Medical Condition: Yes Differential Diagnosis Differential Diagnosis: Suicidal ideation, depression, anxiety, adjustment disorder Discharge Plan Discharge Disposition Patient Disposition: Sign Out(ED Internal Use Only) Discharge Condition Condition: Stable Discharge Order Discharge Orders: ED Use Only Admit Order (Routine); Ordered 08/08/18 Ordered By: Melisa Hoyos Discharge Details Diagnosis: Medical clearance for psychiatric admission, Suicidal ideation Physicians Team ED Provider: Kaci Powell ED Midlevel Provider: Rosie Powell Primary Care Provider: Primary Care Lyndsay Garza Attending Provider: Xu Sharma ED Status: Left Department Discharge Information Discharge Date/Time: 08/08/18 16:55
[2018-08-08] MEDS ORDERED: Aluminum/Magnesium/Simethacone Susp 30 ML UDC PO PRN (14:19)
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
[2018-08-08] MEDS: Acetaminophen 325 MG Tablet PO PRN ×2 (17:17→21:22)
[2018-08-09] MEDS ORDERED: Ibuprofen 600 MG Tablet PO PRN (14:05)
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
[2018-08-09 14:58] LABS: Albumin 3.3 g/dL (3.4-5.0); Anion Gap 6 meq/L (5-15); Blood Urea Nitrogen 11 mg/dL (7-18); Calcium 8.5 mg/dL (8.5-10.1); Carbon Dioxide 26.8 meq/L (21.0-32.0); Chloride 106 meq/L (98-107); Cholesterol 163 mg/dL (120-200); Glomerular Filtration Rate Greater Than 89 mL/min (>89); Glucose,Random 85 mg/dL (74-106); Potassium 4.3 meq/L (3.5-5.1); Sodium 139 meq/L (136-145)
[2018-08-09 14:59] LABS: Total Protein 8.2 g/dL (6.4-8.2)
[2018-08-09 15:00] LABS: Chol/HDL Ratio 3.88 Ratio; LDL Cholesterol,Calculated 95 mg/dL (0-99); Triglycerides 132 mg/dL (42-150)
[2018-08-09 15:30] LABS: Benzodiazepine Urine With Conf Neg (Neg); Cocaine Urine With Conf Neg (Neg); Opiates Urine With Conf Neg (Neg)
[2018-08-09 15:34] LABS: Cannabinoid Urine With Conf Neg (Neg)
[2018-08-09 15:35] LABS: Amphetamine Urine With Conf Pos (Neg)
[2018-08-09] MEDS ORDERED: QUEtiapine 100 MG Tablet PO SCH (21:00)
--- NOTE | 2018-08-10 14:34 | P.TTN ---
- Patient Problems Problems: 1. Discharge planning 2. Medication compliance 3. Knowledge deficit 4. Lack of coping skills - Progress Toward Goals Provider Present: Dr. Violeta De Leon Provider Input: 08/10/18 Per md pt okay on meds and dc is anticipated soon. Nurse Input: 08/10/18 Per RN pt is med compliant and has been observed with no beh complains. Psychiatric Counselors Present: Other Psychiatric Therapist Input: 08/10/18 Per Sanjuana, pt will be dc soon. [facility] is currently been looked as an option for dc. Group Spec/RT/OT/REINOSO Present: KEMAR Cunningham Group Spec/RT/OT/REINOSO Input: 08/10/18 Pt attended 1 group yesterday. - Documentation Teaching Recipient: Patient
--- NOTE | 2018-08-10 17:11 | P.DSPSY ---
Psychiatry Discharge Summary Inpatient Psychiatric care?: Yes Advance Directives: Unknown Reason for Unknown:: Other Mental Health Advance Directive: No Health Care Proxy: No - Admission Admission Date: August 08, 2018 14:29 - Admission Diagnosis (1) Adjustment disorder with depressed mood Code(s): F43.21 - Adjustment disorder with depressed mood (2) Polysubstance abuse Code(s): F19.10 - Other psychoactive substance abuse, uncomplicated Brief History: Patient is a 37-year-old -Mac[place] man, single, homeless, has 5 children , unemployed, with a past psychiatric history of adjustment disorder with depressed mood, with previous psychiatric admission, previous suicide attempt, with a substance use history significant polysubstance use disorder was brought in under Garcia act after patient had called police stating that patient was saying he was going to kill himself which patient was brought to the ED and subsequently admitted to the inpatient psychiatry unit for further evaluation and management. As per chart patient's mother had expressed that patient had texted her that he was going to kill himself and she was concerned for his safety as well as continued concern of patient current substance abuse and wanting patient to engage in rehabilitation program. Patient was found in the room noted B, cooperative. Seen with nurse, noted to be in good spirits. Patient states that he admitted to texting his mother to get a reaction. He states that he does not have any thoughts of wanting to harm himself but that he understands why his mother was worried and Garcia acted him stating that he has children himself and would understand and do the same before his children endorsing suicidal statements. Patient states that he is ready to engage in rehabilitation program as this was discussed as 1 of his mother's concerns and goals is to have patient engage in rehabilitation. He states that he would be "on board" with engaging in a rehab program but states he does not want to be here in the hospital. Patient understands he is under Garcia act due to concerns of his previous suicide attempt and seriousness of his injuries from the last suicide attempt he is understanding of continue monitoring for safety. He does admit to having ongoing issues with substance use as well as having relapsed during a rehab program which she was kicked out of. He denies any SI, HI or AVH or delusions at this time. Collateral information obtained from mother states that she believes that the patient was "an attention seeker" and feels that she overreacted when she called the police. She states "he is fine, he is homeless and he is depressed because of this". She states that she is concerned for his continued drug use and would like him to be engage in rehabilitation program specifically a program in [place] that is [place] based. She states that the patient cannot stay at his brother's house or with her because she does not have a place to live either. She would like further treatment team to clinic patient to a senior living if patient is unable to engage in rehabilitation program or similar facility upon leaving the hospital. She states she would like patient to engage in a program outside of [facility] as she states he knows too many people and connected to drugs. Rest of history unchanged from previous admission other than stated above. Tobacco Use In Past 30 Days: Yes How Often Do You Have a Drink Containing Alcohol: Never Hospital Course: Patient is a 37-year-old -Macanese man, single, homeless, has 5 children , unemployed, with a past psychiatric history of adjustment disorder with depressed mood, with previous psychiatric admission, previous suicide attempt, with a substance use history significant polysubstance use disorder was brought in under Garcia act after patient had called police stating that patient was saying he was going to kill himself which patient was brought to the ED and subsequently admitted to the inpatient psychiatry unit for further evaluation and management. Patient was admitted to a locked, inpatient psychiatric unit. Appropriate precautions were in place throughout patient's hospital stay. Patient was seen and examined on the unit by psychiatry. Psychotropic medications were restarted. There was no evidence of any suicidality or homicidality on the inpatient unit. Patient's mood improved with the benefit of psychopharmacological treatment and had no behavioral disturbance since admission. Patient was noted to have reached stable mood, noted to participate and engage in treatment and interact with staff adequately. Patient noted to be future oriented with plans to continue treatment and outpatient follow-up appointments for continuity of care. Counselor has arranged discharge plan which he is agreeable to engage in rehabilitation program once accepted but in the interim will stay with his mother. On the day of discharge: Patient seen and examined; chart reviewed. Case discussed with nurse and counselor. No behavioral issues overnight. On my examination today, the patient denies any suicidal homicidal ideation, intent or plan on direct questioning and contracts for safety. Patient denies any perceptional disturbances and no delusional material verbalized today. Patient denies any side effects from medication and has understanding of medication regimen and education. No physical complaints. Suicide and violence risk assessment on day of discharge both suggest lower imminent risk, and the patient's level of function is adequate for plan level of outpatient care. Patient has maximized benefit from this inpatient psychiatric hospital stay and will be discharged with discharge plan as arranged by counselor. Patient advised to return to psychiatric emergency room for any concerning psychiatric symptoms. Patient agrees with plan. - Discharge Discharge Date: 08/10/18 - Discharge Diagnosis (1) Adjustment disorder with depressed mood Code(s): F43.21 - Adjustment disorder with depressed mood Status: Acute (2) Polysubstance abuse Code(s): F19.10 - Other psychoactive substance abuse, uncomplicated Status: Acute Discharge Disposition: Home - Discharge Instructions Discharge Diet: Regular Diet Activities You Can Perform: Weight Bearing As Tolerat - Discharge Time > 30 minutes Mental Status Examination Appearance: Appropriate Consciousness: Alert Orientation: x4 Motor Activity: Normal gait Speech: Unremarkable Language: Adequate Fund of Knowledge: Adequate Attention and Concentration: Adequate Memory: Unremarkable Mood: Appropriate Affect: Blunt Thought Process & Associations: Intact, Logical Thought Content: Appropriate Hallucination Type: None Delusion Type: None Suicidal Ideation: No Suicidal Plan: No Suicidal Intention: No Homicidal Ideation: No Homicidal Plan: No Homicidal Intention: No Insight: Fair Judgment: Impulsive Discharge/Advance Care Plan - Results Vital Signs: Last Vital Signs Temp 97.9 F 08/10/18 05:34 Pulse 64 08/10/18 05:34 Resp 18 08/10/18 05:34 BP 123/71 08/10/18 05:34 Pulse Ox 100 08/10/18 05:34 Lab Results: Laboratory Results Triglycerides 132 mg/dL (42-150) 08/09/18 14:04 Cholesterol 163 mg/dL (120-200) 08/09/18 14:04 LDL Cholesterol, Calc 95 mg/dL (0-99) 08/09/18 14:04 HDL Cholesterol 42.0 mg/dL (40.0-60.0) 08/09/18 14:04 Summary of Procedures: none Pending Results: None - Medications Number of antipsychotic medications at discharge: 1 - Discharge Care Plan Goals to Promote Your Health: * To prevent worsening of your condition and complications * To maintain your health at the optimal level Directions to Meet Your Goals: Take your medications as prescribed Follow your dietary instruction Follow activity as directed Keep your appointments as scheduled Take your immunizations and boosters as scheduled If your symptoms worsen call your PCP, if no PCP go to Urgent Care Center or Emergency Room For 08/03 questions related to your inpatient stay or results of tests pending at discharge, please contact Dr. Xu Sharma MD at Smoking is Dangerous to Your Health. Avoid second hand smoking
[2018-08-10 17:25] LABS: Hemoglobin A1c 4.9 % (4.3-6.0)
== END 2018-08-10 15:15 | disposition home or self-care (01) ==
LOC: NEPJ 05:15 → NEDA 14:29 → H270 16:41 → H260 08-09 17:40
PROVIDERS: ADMIT Student in an Organized Health Care Education/Training Program; ATTEND Student in an Organized Health Care Education/Training Program